=== PATIENT | male | born 1975 | race Caucasian/White ===

== ENCOUNTER 2023-01-20 01:45 | Inpatient (IN) | payer OTHER ==
[2023-01-20] MEDS ORDERED: methylPREDNISolone SOD SUCCI 125 MG/2 ML VIAL IV STA (02:40)
[2023-01-20] MEDS ORDERED: IPRATROPIUM-ALBUTEROL 3 ML NEB INHALATION STA (02:40)
[2023-01-20] MEDS ORDERED: SODIUM CHLORIDE 0.9% 1,000 ML IV STA (02:40)
[2023-01-20] MEDS ORDERED: ONDANSETRON 4 MG/2 ML VIAL IVP STA (02:40)
[2023-01-20 03:40] LABS: ALT 28 U/L (4-49); AST 22 U/L (17-59); African American GFR (CKD) >90 (>60 ml/min/1.73 sqM); Albumin 3.7 g/dL (3.5-5.0); Alkaline Phosphatase 65 U/L (38-126); Amylase 43 U/L (30-110); Anion Gap 13 mmol/L; Blood Urea Nitrogen 16 mg/dL (9-20); Carbon Dioxide 23 mmol/L (22-30); Chloride 106 mmol/L (98-107); Glucose 158 mg/dL (74-99); Lipase 110 U/L (23-300); Non-African American GFR(CKD) >90 (>60 ml/min/1.73 sqM); Potassium 3.8 mmol/L (3.5-5.1); Sodium 142 mmol/L (137-145); Total Bilirubin 0.5 mg/dL (0.2-1.3); Total Protein 6.7 g/dL (6.3-8.2)
--- NOTE | 2023-01-20 03:51 | ED ---
Nausea/Vomiting/Diarrhea HPI - General Chief complaint: Nausea/Vomiting/Diarrhea Stated complaint: N/V Time Seen by Provider: 01/20/23 02:31 Source: EMS Mode of arrival: EMS Limitations: no limitations - History of Present Illness Initial comments: 47-year-old male presenting with chief complaint of nausea and vomiting. Patient's states that she heard him get up at around 11:30 when he went to the bathroom and started vomiting. States that he continued vomiting for about an hour and a half. She then went to find him lying on the bathroom floor. He admits to generalized abdominal discomfort with no distinct pain. No fevers or chills. He does admit to shortness of breath, he is a pack and a half per day smoker with asthma. No chest pain. No headache, vision or hearing changes. - Related Data Home Medications Medication Instructions Recorded Confirmed Albuterol Inhaler [Ventolin Hfa 2 puff INHALATION RT-QID PRN 01/20/23 01/20/23 Inhaler] Gabapentin 800 mg PO TID 01/20/23 01/20/23 HYDROcodone/APAP 7.5-325MG [[place] 1 tab PO TID PRN 01/20/23 01/20/23 7.5-325] Loperamide [Imodium] 4 mg PO QID PRN 01/20/23 01/20/23 Losartan/Hydrochlorothiazide 1 tab PO DAILY 01/20/23 01/20/23 [Losartan-Hctz 100-25 mg Tab] Metoprolol Succinate (ER) [Toprol 100 mg PO DAILY 01/20/23 01/20/23 XL] Semaglutide [Ozempic] 1 mg SQ SA 01/20/23 01/20/23 Sertraline [Zoloft] 100 mg PO DAILY 01/20/23 01/20/23 Simethicone [Gas-X] 250 mg PO ACHS PRN 01/20/23 01/20/23 Tiotropium 2.5 Mcg/Puff [Spiriva 2 puff INHALATION RT-BID 01/20/23 01/20/23 Respimat 2.5 Mcg] metFORMIN HCL [Glucophage] 500 mg PO DAILY 01/20/23 01/20/23 Allergies Allergy/AdvReac Type Severity Reaction Status Date / Time No Known Allergies Allergy Verified 01/20/23 12:15 Review of Systems ROS Statement: Those systems with pertinent positive or pertinent negative responses have been documented in the HPI. ROS Other: All systems not noted in ROS Statement are negative. Past Medical History Past Medical History: Diabetes Mellitus History of Any Multi-Drug Resistant Organisms: None Reported Past Surgical History: No Surgical Hx Reported Past Psychological History: No Psychological Hx Reported Smoking Status: Current every day smoker Past Alcohol Use History: Rare Past Drug Use History: Marijuana - Past Family History Mother Family Medical History: Congestive Heart Failure (CHF) Additional Family Medical History / Comment(s): passed 2009 post hernia repair General Exam Limitations: no limitations General appearance: alert, in no apparent distress Head exam: Present: atraumatic, normocephalic, normal inspection Eye exam: Present: normal appearance, EOMI Neck exam: Present: normal inspection, full ROM Respiratory exam: Present: wheezes, rales. Absent: rhonchi, stridor Cardiovascular Exam: Present: regular rate, normal rhythm, normal heart sounds. Absent: systolic murmur, diastolic murmur, rubs, gallop, clicks GI/Abdominal exam: Present: soft, distended. Absent: tenderness, guarding, rebound, rigid Extremities exam: Present: pedal edema Neurological exam: Present: alert, altered Psychiatric exam: Present: normal affect, normal mood Skin exam: Present: warm, dry, intact, normal color. Absent: rash Course Vital Signs 01/20/23 01/20/23 01/20/23 02:00 03:55 04:10 Temperature 98 F Pulse Rate 82 72 75 Pulse Rate [ Pulse Oximetery ] Respiratory 18 Rate Blood Pressure 144/85 Blood Pressure [Right Arm] O2 Sat by Pulse 94 L Oximetry 01/20/23 01/20/23 01/20/23 07:31 09:07 09:14 Temperature 97.3 F L Pulse Rate 70 72 70 Pulse Rate [ Pulse Oximetery ] Respiratory 24 Rate Blood Pressure 115/73 Blood Pressure [Right Arm] O2 Sat by Pulse 93 L Oximetry 01/20/23 01/20/23 01/20/23 09:52 12:07 12:18 Temperature Pulse Rate 67 70 74 Pulse Rate [ Pulse Oximetery ] Respiratory 22 Rate Blood Pressure 113/70 Blood Pressure [Right Arm] O2 Sat by Pulse 93 L Oximetry 01/20/23 01/20/23 01/20/23 15:21 15:41 15:50 Temperature Pulse Rate 65 76 78 Pulse Rate [ Pulse Oximetery ] Respiratory 20 Rate Blood Pressure 120/65 Blood Pressure [Right Arm] O2 Sat by Pulse 91 L Oximetry 01/20/23 16:40 Temperature 97.5 F L Pulse Rate 74 Pulse Rate [ 70 Pulse Oximetery ] Respiratory 16 Rate Blood Pressure 122/78 Blood Pressure 147/85 [Right Arm] O2 Sat by Pulse 100 Oximetry Medical Decision Making - Medical Decision Making Was pt. sent in by a medical professional or institution (, PA, COMPONENT ENGINEER, urgent care, hospital, or half-way...) When possible be specific @ -No Did you speak to anyone other than the patient for history (EMS, parent, family, police, friend...)? What history was obtained from this source @ -Spoke with and son at bedside Did you review nursing and triage notes (agree or disagree)? Why? @ -I reviewed and agree with nursing and triage notes Were old charts reviewed (outside hosp., previous admission, EMS record, old EKG, old radiological studies, urgent care reports/EKG's, half-way records)? Report findings @ -No old charts were reviewed Differential Diagnosis (chest pain, altered mental status, abdominal pain women, abdominal pain men, vaginal bleeding, weakness, fever, dyspnea, syncope, headache, dizziness, GI bleed, back pain, seizure, CVA, palpatations, mental health, musculoskeletal)? @ -MDM Differential Dyspnea: Coronary syndrome, arrhythmia, tamponade, asthma, COPD, pulmonary embolism, pneumonia, pneumothorax, pulmonary effusion, anaphylaxis, diabetic ketoacidosis, flailed chest, pulmonary contusion, diaphragmatic rupture, anemia, neuromuscular… this is not meant to be an all-inclusive list. EKG interpreted by me (3pts min.). @ -As above X-rays interpreted by me (1pt min.). @ -Chest x-ray positive for effusion, correlate for CHF CT interpreted by me (1pt min.). @ -None done U/S interpreted by me (1pt. min.). @ -None done What testing was considered but not performed or refused? (CT, X-rays, U/S, labs)? Why? @ -None What meds were considered but not given or refused? Why? @ -None Did you discuss the management of the patient with other professionals (professionals i.e. , PA, COMPONENT ENGINEER, lab, RT, psych nurse, director of social media marketing, community health nursing director, teacher, sales and service officer, caseworker protective services)? Give summary @ -My attending spoke with the [facility], [place] physician on-call who accepted admission Was smoking cessation discussed for >3mins.? @ -No Was critical care preformed (if so, how long)? @ -No Were there social determinants of health that impacted care today? How? (Homelessness, low income, unemployed, alcoholism, drug addiction, transportation, low edu. Level, literacy, decrease access to med. care, snf, rehab)? @ -No Was there de-escalation of care discussed even if they declined (Discuss DNR or withdrawal of care, Hospice)? DNR status @ -No What co-morbidities impacted this encounter? (DM, HTN, Smoking, COPD, CAD, Cancer, CVA, ARF, Chemo, Hep., AIDS, mental health diagnosis, sleep apnea, morbid obesity)? @ -None Was patient admitted / discharged? Hospital course, mention meds given and route, prescriptions, significant lab abnormalities, going to OR and other pertinent info. @ -47-year-old male presenting with chief complaint of nausea and vomiting. On physical examination patient initially increased respiratory effort. Use wheezes and rales are heard on auscultation. Patient appears fluid overload with abdomen distention and lower extremity edema. WBC 16.3. Chest x-ray positive for effusion vs consolidation. Given his white count he'll be given one dose of Rocephin and azithromycin in the event of pneumonia. BNP and troponin are added on. Patient will be admitted. He is agreeable with this plan. I discussed this case with my attending Dr. Obiren Undiagnosed new problem with uncertain prognosis? @ -No Drug Therapy requiring intensive monitoring for toxicity (Heparin, Nitro, Insulin, Cardizem)? @ -No Were any procedures done? @ -No Diagnosis/symptom? @ -pneumonia Acute, or Chronic, or Acute on Chronic? @ -acute Uncomplicated (without systemic symptoms) or Complicated (systemic symptoms)? @ -Complicated Side effects of treatment? @ -No Exacerbation, Progression, or Severe Exacerbation? @ -No Poses a threat to life or bodily function? How? (Chest pain, USA, VT, pneumonia, PE, COPD, DKA, ARF, appy, cholecystitis, CVA, Diverticulitis, Homicidal, Suicidal, threat to staff... and all critical care pts) @ -yes - Lab Data Result diagrams: 01/20/23 03:20 01/20/23 03:20 Lab Results 01/20/23 01/20/23 01/20/23 Range/Units 03:20 03:20 03:50 WBC 16.3 H (3.8-10.6) k/uL RBC 5.00 (4.30-5.90) m/uL Hgb 16.5 (13.0-17.5) gm/dL Hct 49.9 (39.0-53.0) % MCV 99.8 (80.0-100.0) fL MCH 33.1 (25.0-35.0) pg MCHC 33.2 (31.0-37.0) g/dL RDW 12.7 (11.5-15.5) % Plt Count 298 (150-450) k/uL MPV 8.6 Neutrophils % 89 % Lymphocytes % 7 % Monocytes % 3 % Eosinophils % 0 % Basophils % 0 % Neutrophils # 14.5 H (1.3-7.7) k/uL Lymphocytes # 1.1 (1.0-4.8) k/uL Monocytes # 0.5 (0-1.0) k/uL Eosinophils # 0.0 (0-0.7) k/uL Basophils # 0.0 (0-0.2) k/uL Sodium 142 (137-145) mmol/L Potassium 3.8 (3.5-5.1) mmol/L Chloride 106 (98-107) mmol/L Carbon Dioxide 23 (22-30) mmol/L Anion Gap 13 mmol/L BUN 16 (9-20) mg/dL Creatinine 0.76 (0.66-1.25) mg/dL Est GFR (CKD-EPI)AfAm >90 (>60 ml/min/1.73 sqM) Est GFR (CKD-EPI)NonAf >90 (>60 ml/min/1.73 sqM) Glucose 158 H (74-99) mg/dL Calcium 9.0 (8.4-10.2) mg/dL Total Bilirubin 0.5 (0.2-1.3) mg/dL AST 22 (17-59) U/L ALT 28 (4-49) U/L Alkaline Phosphatase 65 (38-126) U/L Total Protein 6.7 (6.3-8.2) g/dL Albumin 3.7 (3.5-5.0) g/dL Amylase 43 (30-110) U/L Lipase 110 (23-300) U/L Influenza Type A (PCR) Not Detected (Not Detectd) Influenza Type B (PCR) Not Detected (Not Detectd) RSV (PCR) Not Detected (Not Detectd) SARS-CoV-2 (PCR) Not Detected (Not Detectd) Disposition Clinical Impression: Pneumonia Disposition: ADMITTED IP TO THIS HOSP Condition: Fair Time of Disposition: 05:24
[2023-01-20 04:02] LABS: Basophils % (A) 0 %; Eosinophils % (A) 0 %; HCT 49.9 % (39.0-53.0); HGB 16.5 gm/dL (13.0-17.5); Lymphocytes # (A) 1.1 k/uL (1.0-4.8); Lymphocytes % (A) 7 %; MCH 33.1 pg (25.0-35.0); MCHC 33.2 g/dL (31.0-37.0); MCV 99.8 fL (80.0-100.0); Mean Platelet Volume 8.6; Monocytes # (A) 0.5 k/uL (0-1.0); Monocytes % (A) 3 %; Neutrophils # (A) 14.5 k/uL (1.3-7.7); Neutrophils % (A) 89 %; Platelet Count 298 k/uL (150-450); RDW 12.7 % (11.5-15.5); WBC 16.3 k/uL (3.8-10.6)
[2023-01-20] MEDS ORDERED: FUROSEMIDE 10 MG/ML 4 ML VIAL IV STA (05:00)
[2023-01-20] MEDS ORDERED: cefTRIAXone IN SWFI 1,000 MG/10 ML SYRINGE IVP STA (05:00)
[2023-01-20] MEDS ORDERED: AZITHROMYCIN 500 MG in SODIUM CHLORIDE 0.9% 250 ML IVPB STA (05:00)
[2023-01-20] MEDS ORDERED: NALOXONE 0.4 MG/ML 1 ML VIAL IV PRN (05:22)
[2023-01-20] MEDS ORDERED: ONDANSETRON 4 MG/2 ML VIAL IVP PRN (05:22)
[2023-01-20] MEDS ORDERED: IPRATROPIUM-ALBUTEROL 3 ML NEB INHALATION PRN (06:06)
--- NOTE | 2023-01-20 06:08 | P.HPIM ---
History of Present Illness H&P Date: 01/20/23 Patient is a 47-year-old male with a PMH of asthma/COPD who presents to the emergency room with complaints of nausea/vomiting, and shortness of breath. Patient reports that his symptoms started earlier today with gradually worsening nausea with multiple episodes of nonbloody emesis. He reports shortness of breath over the last few days which is also been gradually worsening. Reports long-standing history of bilateral lower extremity edema without ever being diagnosed with congestive heart failure. Denies experiencing cough, fever, chills. Denied chest discomfort, abdominal pain, diarrhea. In the emergency room, chest x-ray was reviewed with the ED provider revealed cardiomegaly with minimal bilateral opacities. EKG revealed sinus rhythm with minimal ST segment depression noted in leads V3 to V6 with T-wave inversion in the same leads. Laboratory evaluation revealed troponin less than 0.012 with proBNP 147, leukocytosis of 16.3, with coronavirus and influenza testing negative. ED documentation reviewed and case discussed with ED provider. Review of systems: Pertinent positives and negatives as discussed in HPI, a complete review of systems was performed and all other systems are negative. Physical examination: Vital signs reviewed General: non toxic, no distress, appears at stated age, obese Derm: no unusual rashes/lesions, warm Head: atraumatic, normocephalic, symmetric Eyes: EOMI, no lid lag, anicteric sclera, pupils equal round reactive to light ENT: Nose and ears atraumatic Neck: No cervical lymphadenopathy, trachea midline, supple Mouth: no lip lesion, mucus membranes moist Cardiovascular: S1S2 reg, no murmur, positive dorsalis pedis pulse bilateral, 1+ duran LE edema Lungs: Scattered coarse breath sounds with poor air entry, no accessory muscle use Abdominal: soft, nontender to palpation, no guarding Ext: muscle strength 5 out of 5 in all 4 extremities grossly, no gross muscle atrophy, no contractures, Neuro: CN II-XI grossly intact, no gross focal neuro deficits Psych: Somewhat lethargic, oriented, appropriate affect Assessment: Shortness of breath, suspect acute COPD exacerbation, unable to rule out atypical pneumonia Imaging: In the emergency room, chest x-ray was reviewed with the ED provider revealed cardiomegaly with minimal bilateral opacities. EKG revealed sinus rhythm with minimal ST segment depression noted in leads V3 to V6 with T-wave inversion in the same leads. Data Review: Laboratory evaluation revealed troponin less than 0.012 with proBNP 147, leukocytosis of 16.3, with coronavirus and influenza testing negative. Plan: Continue with Solu-Medrol IV 60 mg every 6 hours DuoNeb's [id number] and as needed Continue ceftriaxone and azithromycin at this time Check pro calcitonin levels Obtain echocardiogram Obtain ABG DVT prophylaxis: Lovenox subq The patient is admitted with an anticipated [] than 2 midnight stay for evaluation of [] CODE STATUS: Full Code Discussed with: Patient Anticipated discharge place: Home Past Medical History Past Medical History: Diabetes Mellitus History of Any Multi-Drug Resistant Organisms: None Reported Past Surgical History: No Surgical Hx Reported Past Psychological History: No Psychological Hx Reported Smoking Status: Current every day smoker Past Alcohol Use History: Rare Past Drug Use History: Marijuana Medications and Allergies Allergies Allergy/AdvReac Type Severity Reaction Status Date / Time No Known Allergies Allergy Verified 01/20/23 02:03 Physical Exam Vitals: Vital Signs Temp Pulse Resp BP Pulse Ox 01/20/23 04:10 75 01/20/23 03:55 72 01/20/23 02:00 98 F 82 18 144/85 94 L Intake and Output 01/19/23 01/19/23 01/20/23 14:59 22:59 06:59 Other: Weight 158.757 kg Results CBC & Chem 7: 01/20/23 03:20 01/20/23 03:20 Labs: Abnormal Lab Results - Last 24 Hours (Table) 01/20/23 01/20/23 Range/Units 03:20 03:20 WBC 16.3 H (3.8-10.6) k/uL Neutrophils # 14.5 H (1.3-7.7) k/uL Glucose 158 H (74-99) mg/dL
[2023-01-20] MEDS: methylPREDNISolone SOD SUCCI 125 MG/2 ML VIAL IV SCH ×4 (06:50→23:31)
[2023-01-20 06:58] LABS: ABG Base Excess 2.2 mmol/L; ABG HCO3 28 mmol/L (21-25); ABG Oxygen Saturation 95.1 % (94-97); ABG PCO2 51 mmHg (35-45); ABG PH 7.35 (7.35-7.45); ABG PO2 75 mmHg (83-108); ABG TCO2 30 mmol/L (19-24); Allen Test Performed? Yes
[2023-01-20 07:58] LABS: Appearance,Urine Clear (Clear); Bilirubin,Urine Negative (Negative); Blood,Urine Negative (Negative); Color,Urine Yellow; Glucose,Urine (UA) Negative (Negative); Ketones,Urine Negative (Negative); Leukocyte Esterase,Urine Negative (Negative); Nitrite,Urine Negative (Negative); Protein,Urine Trace (Negative); Specific Gravity,Urine 1.017 (1.001-1.035); Urobilinogen,Urine <2.0 mg/dL (<2.0)
--- NOTE | 2023-01-20 08:37 | XR ---
EXAMINATION TYPE: XR chest 2V DATE OF EXAM: 01/20/2023 3:39 AM CLINICAL INDICATION:Male, 47 years old with history of SOB; [facility] COMPARISON: None TECHNIQUE: XR chest 2V Frontal and lateral views of the chest. FINDINGS: Lines/Tubes: No indwelling lines are seen. Lungs/Pleura: Hazy opacity left lung base on the frontal view attributed to overlying heart, with mil d atelectasis possible. There is otherwise no evidence of pleural effusion, focal consolidation, or p neumothorax. Pulmonary vascularity: Mild pulmonary vascular congestion. Heart/mediastinum: Cardiomediastinal silhouette is mildly prominent in size. Unremarkable mediastina l silhouette. Musculoskeletal: No acute osseous pathology. Mild degenerative changes of the dorsal spine. Other findings: None IMPRESSION: Mild cardiomegaly and mild pulmonary vascular congestion. Otherwise no acute cardiopulmonary disease/process.
--- NOTE | 2023-01-20 08:47 | P.CRDCN ---
History of Present Illness Consult date: 01/20/23 Chief complaint: SOB History of present illness: The patient is a pleasant 47-year-old gentleman with past medical history significant for overweight and diabetes and hypertension and smoking. He was brought to the hospital by his family. The patient was in his usual state of health about 2 days ago. Woke up from sleep went to the bathroom because he felt nauseated. He tried that he could not. He was weak to get up. He was brought to the emergency department for further evaluation. For the last few days he has been experiencing increasing shortness of breath with exertion associated with bilateral lower extremity edema. He gained weight. No symptoms of any chest pain or chest discomfort but he didn't have an episode of chest t ightness days ago. Currently he is chest pain-free. He felt the chest tightness could be related to asthma. The patient underwent workup including EKG and that showed ST changes in the anterolateral leads concerning for severe underlying coronary artery disease. Would be also related to hypertensive heart disease. The first set of troponin came in to be unremarkable. More sets of troponin. The echo was ordered and still pending. Clinically the patient is sitting at 45 angle the and he stated that his the left more short of breath laying flat. He is slightly hypoxic presented to the emergency department currently he is on oxygen and is feeling better. The chest x-ray showed findings consistent with what it seems to be heart failure. He came into the low. The patient is overweight and that could be falsely low. The patient does have multiple risk factors for overweight diabetes and hypertension and he is also a smoker. The examination is remarkable for stable vital signs at this point with diminished breathing sounds bilaterally and irregularly with distant heart sounds and mild bilateral lower extremity Soft nontender abdomen Assessment Shortness of breath Abnormal EKG Overweight Smoking Diabetes Hypertension Plan Start the patient on IV Lasix at this point Follow-up with the echocardiogram which was ordered Serial cardiac enzymes and rule out acute coronary event given the abnormality on the EKG Rule out pulmonary embolism. Obtain d-dimer. Even though the diagnosis is likely Follow-up with the patient Past Medical History Past Medical History: Diabetes Mellitus History of Any Multi-Drug Resistant Organisms: None Reported Past Surgical History: No Surgical Hx Reported Past Psychological History: No Psychological Hx Reported Smoking Status: Current every day smoker Past Alcohol Use History: Rare Past Drug Use History: Marijuana Medications and Allergies Allergies Allergy/AdvReac Type Severity Reaction Status Date / Time No Known Allergies Allergy Verified 01/20/23 02:03 Physical Exam Vitals: Vital Signs Temp Pulse Resp BP Pulse Ox 01/20/23 07:31 97.3 F L 70 24 115/73 93 L 01/20/23 04:10 75 01/20/23 03:55 72 01/20/23 02:00 98 F 82 18 144/85 94 L Intake and Output 01/19/23 01/20/23 01/20/23 22:59 06:59 14:59 Other: Weight 158.757 kg Results 01/20/23 03:20 01/20/23 03:20 Cardiac Enzymes 01/20/23 01/20/23 Range/Units 03:20 05:17 AST 22 (17-59) U/L Troponin I <0.012 (0.000-0.034) ng/mL CBC 01/20/23 Range/Units 03:20 WBC 16.3 H (3.8-10.6) k/uL RBC 5.00 (4.30-5.90) m/uL Hgb 16.5 (13.0-17.5) gm/dL Hct 49.9 (39.0-53.0) % Plt Count 298 (150-450) k/uL Comprehensive Metabolic Panel 01/20/23 Range/Units 03:20 Sodium 142 (137-145) mmol/L Potassium 3.8 (3.5-5.1) mmol/L Chloride 106 (98-107) mmol/L Carbon Dioxide 23 (22-30) mmol/L BUN 16 (9-20) mg/dL Creatinine 0.76 (0.66-1.25) mg/dL Glucose 158 H (74-99) mg/dL Calcium 9.0 (8.4-10.2) mg/dL AST 22 (17-59) U/L ALT 28 (4-49) U/L Alkaline Phosphatase 65 (38-126) U/L Total Protein 6.7 (6.3-8.2) g/dL Albumin 3.7 (3.5-5.0) g/dL Current Medications Generic Name Dose Route Start Last Admin Trade Name Freq PRN Reason Stop Dose Admin Albuterol/Ipratropium 3 ml 01/20/23 06:06 Ipratropium-Albuterol 3 Ml Neb INHALATION RT-QID PRN Shortness Of Breath Or Wheezing Albuterol/Ipratropium 3 ml 01/20/23 08:00 Ipratropium-Albuterol 3 Ml Neb INHALATION RT-QID [facility] Azithromycin 500 mg 01/21/23 09:00 Azithromycin 500 Mg Tab PO 01/22/23 09:01 DAILY [facility] Protocol Enoxaparin Sodium 40 mg 01/20/23 09:00 Enoxaparin 40 Mg/0.4 Ml Syringe SQ DAILY [facility] Ceftriaxone Sodium 2 gm/ 50 mls @ 100 mls/hr 01/20/23 21:00 Sodium Chloride IVPB HS [facility] Protocol Methylprednisolone Sodium Succinate 60 mg 01/20/23 06:15 01/20/23 06:50 Methylprednisolone Sod Succi 125 Mg/2 Ml Vial IV 60 mg Q6HR [facility] Administration Naloxone HCl 0.2 mg 01/20/23 05:22 Naloxone 0.4 Mg/Ml 1 Ml Vial IV Q2M PRN Opioid Reversal Ondansetron HCl 4 mg 01/20/23 05:22 Ondansetron 4 Mg/2 Ml Vial IVP Q8HR PRN Nausea And Vomiting Intake and Output 01/19/23 01/20/23 01/20/23 22:59 06:59 14:59 Other: Weight 158.757 kg 01/20/23 03:20 01/20/23 03:20
[2023-01-20] MEDS ORDERED: ENOXAPARIN 40 MG/0.4 ML SYRINGE SQ SCH (09:00)
[2023-01-20] MEDS: IPRATROPIUM-ALBUTEROL 3 ML NEB INHALATION SCH ×4 (09:06→18:12)
[2023-01-20] MEDS: FUROSEMIDE 10 MG/ML 4 ML VIAL IV SCH ×2 (09:52→21:10)
[2023-01-20] MEDS ORDERED: ALBUTEROL NEBULIZED 2.5 MG/3 ML INHALATION PRN (14:17)
--- NOTE | 2023-01-20 14:34 | P.PN ---
Subjective Progress Note Date: 01/20/23 (delayed charting seen at 0925) Patient is a 47-year-old male for history of COPD, diabetes mellitus type 2, hypertension, and ongoing tobacco abuse who presented to the hospital due to we akness, exertional dyspnea, enlarged the edema. Patient seen and examined at bedside. He still just doesn't feel quite right. He denies any nausea. He is not having much chest pain at this time. Patient was visited bedside. All questions answered. He does have some lower extremity edema which has been improved since admission. Vital signs reviewed General: nontoxic, no distress, appears at stated age Cardiovascular: S1S2 reg, no murmur, positive posterior tibial pulse bilateral, Lungs: CTA bilateral, no rhonchi, no rales , no accessory muscle use Abdominal: soft, nontender to palpation, no guarding, no appreciable organomegaly Ext: no gross muscle atrophy, no edema b/l lower extremities, no contractures Neuro: CN II-XI grossly intact, no focal neuro deficits Psych: Alert, oriented, appropriate affect Assessment/Plan: Dyspnea, probable acute exacerbation of COPD versus new onset congestive heart failure, pneumonia ruled out -Lasix 40 mg IV twice a day -Strict I's and O's, daily weights, await echocardiogram-resume metoprolol 100 m g daily, losartan 100 mg daily, hold hydrochlorothiazide while on Lasix -Cardiology recommendations appreciated: Obtain D dimer, serial cardiac enzymes, follow-up echocardiogram -Resume Spiriva, DuoNeb 4 times daily and when necessary, Solu-Medrol 60 mg IV every 6 hours -Await pro-calcitonin -Discontinue with Rocephin and Zithromax, doubt pna clinically has received dose for today, can reorder tomorrow if procal is elevated. - repeat CXR in AM -Influenza A/B/RSV/COVID-19 PCR negative Diabetes mellitus type 2 -Hold Glucophage and some occlusion by -Sliding-scale insulin -Follow blood sugars Obseity Class III - resume ozempic on discharge - outpatient structured weight loss Imaging: none new Data Review: D-dimer 0.60 DVT prophylaxis: Lovenox Anticipated discharge date: Pending Clinical Course Anticipated discharge place: Pending Clinical Course This dictation was prepared using [employer] voice recognition software. Though every attempt is made to correct errors during dictation some may still exist. Objective - Vital Signs Vital signs: Vital Signs Temp 97.3 F L 01/20/23 07:31 Pulse 74 01/20/23 12:18 Resp 22 01/20/23 09:52 BP 113/70 01/20/23 09:52 Pulse Ox 93 L 01/20/23 09:52 FiO2 Intake & Output 01/19/23 01/20/23 01/20/23 18:59 06:59 18:59 Output Total 700 Balance -700 Weight 158.757 kg Output: Urine 700 - Labs CBC & Chem 7: 01/20/23 03:20 01/20/23 03:20 Labs: Abnormal Lab Results - Last 24 Hours (Table) 01/20/23 01/20/23 01/20/23 Range/Units 03:20 03:20 06:10 WBC 16.3 H (3.8-10.6) k/uL Neutrophils # 14.5 H (1.3-7.7) k/uL D-Dimer (<0.60) mg/L FEU ABG pCO2 (35-45) mmHg ABG pO2 (83-108) mmHg ABG HCO3 (21-25) mmol/L ABG Total CO2 (19-24) mmol/L Glucose 158 H (74-99) mg/dL Urine Protein Trace H (Negative) 01/20/23 01/20/23 Range/Units 06:52 09:58 WBC (3.8-10.6) k/uL Neutrophils # (1.3-7.7) k/uL D-Dimer 0.60 H (<0.60) mg/L FEU ABG pCO2 51 H (35-45) mmHg ABG pO2 75 L (83-108) mmHg ABG HCO3 28 H (21-25) mmol/L ABG Total CO2 30 H (19-24) mmol/L Glucose (74-99) mg/dL Urine Protein (Negative)
[2023-01-20] MEDS: GABAPENTIN 400 MG CAP PO SCH ×2 (15:17→21:09)
[2023-01-20] MEDS: SERTRALINE 100 MG TAB PO SCH (15:17)
--- NOTE | 2023-01-20 15:56 | CT ---
EXAMINATION TYPE: CT chest angio for PE DATE OF EXAM: 01/20/2023 COMPARISON: None HISTORY: Elevated d-dimer, chest pain CT DLP: 1069.4 mGycm Automated exposure control for dose reduction was used. CONTRAST: CT Chest for pulmonary embolism performed with with IV Contrast, patient injected with 100 mL of Isov ue 370. 3-D postprocessing was performed FINDINGS: There are small infiltrates in the lung bases posteriorly which could represent atelectasis but small pneumonic infiltrate not excluded. There is no pleural effusion, pleural thickening or pneumothorax. The great vessels chest are normal and there is no mediastinal, hilar or axillary adenopathy. There is satisfactory enhancement of the pulmonary artery and branches and there is no evidence of fi lling is intact to suggest pulmonary embolism. Limited scanning through the upper abdomen reveals no gross abnormality. The osseous structures are intact. IMPRESSION: 1. No evidence of pulmonary embolism. 2. Small bibasilar infiltrates is described above.
[2023-01-20] MEDS ORDERED: NON FORMULARY DRUG (Tiotropium 2.5 Mcg/Puff 10 PUFF Each) INHALATION SCH (20:00)
[2023-01-20] MEDS: HYDROcodone/APAP 7.5-325MG 1 EACH TAB PO PRN (21:20)
[2023-01-21] MEDS: methylPREDNISolone SOD SUCCI 125 MG/2 ML VIAL IV SCH ×3 (05:31→17:42)
--- NOTE | 2023-01-21 07:41 | XR ---
EXAMINATION TYPE: XR chest 2V DATE OF EXAM: 01/21/2023 7:11 AM CLINICAL INDICATION:Male, 47 years old with history of pneumonia; COMPARISON: Chest radiographs from 01/20/2023 TECHNIQUE: XR chest 2V Frontal and lateral views of the chest. FINDINGS: Lungs/Pleura: Low lung volumes are present. There is no evidence of pleural effusion, focal consolida tion, or pneumothorax. Pulmonary vascularity: Pulmonary vascular congestion. Heart/mediastinum: Cardiomediastinal silhouette is enlarged and stable. Musculoskeletal: No acute osseous pathology. IMPRESSION: 1. Pulmonary edema without focal consolidation.
[2023-01-21 07:52] LABS: MCH 32.6 pg (25.0-35.0); MCHC 32.6 g/dL (31.0-37.0); Mean Platelet Volume 8.5; Platelet Count 284 k/uL (150-450); RDW 12.7 % (11.5-15.5); WBC 17.8 k/uL (3.8-10.6)
[2023-01-21 08:01] LABS: African American GFR (CKD) >90 (>60 ml/min/1.73 sqM); Anion Gap 11 mmol/L; Blood Urea Nitrogen 22 mg/dL (9-20); Calcium 8.7 mg/dL (8.4-10.2); Carbon Dioxide 28 mmol/L (22-30); Chloride 102 mmol/L (98-107); Glucose 134 mg/dL (74-99); Non-African American GFR(CKD) >90 (>60 ml/min/1.73 sqM); Potassium 3.9 mmol/L (3.5-5.1); Sodium 141 mmol/L (137-145)
[2023-01-21] MEDS ORDERED: HEPARIN SODIUM 1,000 UN/ML (10ML VL) IV ONE (08:42)
[2023-01-21] MEDS ORDERED: HEPARIN SODIUM 1,000 UN/ML (10ML VL) IV PRN (08:42)
[2023-01-21] MEDS ORDERED: ATORVASTATIN 80 MG TAB PO STA (08:43)
[2023-01-21] MEDS ORDERED: ASPIRIN 325 MG TAB PO STA (08:43)
[2023-01-21] MEDS ORDERED: ALPRAZolam 0.25 MG TAB PO PRN (08:43)
[2023-01-21] MEDS ORDERED: NITROGLYCERIN SL TABS 0.4 MG TAB SUBLINGUAL PRN (08:43)
[2023-01-21] MEDS ORDERED: ALPRAZolam 0.5 MG TAB PO PRN (08:43)
[2023-01-21] MEDS: SERTRALINE 100 MG TAB PO SCH (08:47)
[2023-01-21] MEDS: METOPROLOL SUCCINATE (ER) 100 MG TAB.ER.24H PO SCH (08:47)
[2023-01-21] MEDS: FUROSEMIDE 10 MG/ML 4 ML VIAL IV SCH ×3 (08:47→22:27)
[2023-01-21] MEDS: GABAPENTIN 400 MG CAP PO SCH ×3 (08:47→22:27)
[2023-01-21] MEDS: IPRATROPIUM-ALBUTEROL 3 ML NEB INHALATION SCH ×4 (08:49→22:01)
[2023-01-21] MEDS: HYDROcodone/APAP 7.5-325MG 1 EACH TAB PO PRN ×2 (08:55→16:46)
[2023-01-21] MEDS ORDERED: AZITHROMYCIN 500 MG TAB PO SCH (09:00)
[2023-01-21] MEDS: SODIUM CHLORIDE 0.9% 1,000 ML in EMPTY BAG 1 BAG IV SCH ×2 (10:26→17:43)
[2023-01-21 11:00] LABS: Basophils % (A) 0 %; Eosinophils % (A) 0 %; HCT 48.8 % (39.0-53.0); HGB 15.6 gm/dL (13.0-17.5); Lymphocytes # (A) 0.8 k/uL (1.0-4.8); Lymphocytes % (A) 5 %; MCH 32.3 pg (25.0-35.0); MCHC 32.1 g/dL (31.0-37.0); MCV 100.9 fL (80.0-100.0); Mean Platelet Volume 8.4; Monocytes # (A) 0.4 k/uL (0-1.0); Monocytes % (A) 2 %; Neutrophils # (A) 16.7 k/uL (1.3-7.7); Neutrophils % (A) 93 %; Platelet Count 329 k/uL (150-450); RBC 4.84 m/uL (4.30-5.90); RDW 12.7 % (11.5-15.5); WBC 18.1 k/uL (3.8-10.6)
[2023-01-21] MEDS: HEPARIN SOD,PORK IN 0.45% NACL 25,000 UNIT in 0.45% NACL 1 250ML.BAG IV SCH (11:01)
[2023-01-21 11:08] LABS: Partial Thromboplastin Time 22.7 sec (22.0-30.0); Prothrombin Time 10.3 sec (9.0-12.0)
--- NOTE | 2023-01-21 11:51 | P.PN ---
Subjective HISTORY OF PRESENT ILLNESS: The patient is a pleasant 47-year-old gentleman with past medical history significant for overweight and diabetes and hypertension and smoking. He was brought to the hospital by his family. The patient was in his usual state of health about 2 days ago. Woke up from sleep went to the bathroom because he felt nauseated. He tried that he could not. He was weak to get up. He was brought to the emergency department for further evaluation. For the last few days he has been experiencing increasing shortness of breath with exertion associated with bilateral lower extremity edema. He gained weight. No symptoms of any chest pain or chest discomfort but he didn't have an episode of chest tightness days ago. Currently he is chest pain-free. He felt the chest tightness could be related to asthma. The patient underwent workup including EKG and that showed ST changes in the anterolateral leads concerning for severe underlying coronary artery disease. Would be also related to hypertensive heart disease. The first set of troponin came in to be unremarkable. More sets of troponin. The echo was ordered and still pending. Clinically the patient is sitting at 45 angle the and he stated that his the left more short of breath laying flat. He is slightly hypoxic presented to the emergency department currently he is on oxygen and is feeling better. The chest x-ray showed finding s consistent with what it seems to be heart failure. He came into the low. The patient is overweight and that could be falsely low. The patient does have multiple risk factors for overweight diabetes and hypertension and he is also a smoker. 01/21/2023 Patient examined this morning at the bedside. Patient currently denies chest pain or pressure. He reports improvement in his shortness of breath. He remains on IV Lasix. Vital signs this morning are stable. Patient was found to have elevated troponin up to 0.147. PHYSICAL EXAM: VITAL SIGNS: Reviewed. GENERAL: Well-developed in no acute distress. NECK: Supple. No JVD or thyromegaly LUNGS: Respirations even and unlabored. Lungs essentially clear to auscultation bilaterally. HEART: Regular rate and rhythm. S1 and S2 heard. EXTREMITIES: Normal range of motion. No clubbing or cyanosis. Peripheral pulses intact. No lower extremity edema ASSESSMENT: Non-STEMI New onset shortness of breath Abnormal EKG Diabetes Hypertension Morbid obesity Nicotine dependence PLAN: 2-D echo ordered. Await results Continue IV Lasix Add aspirin 81 mg daily Add atorvastatin 80 mg at night Begin IV heparin infusion Patient to be transferred to [facility] with telemetry monitoring Patient to undergo cardiac catheterization today with Dr. Sherwood Further recommendations pending patient course Nurse practitioner note has been reviewed by physician. Signing provider agrees with the documented findings, assessment, and plan of care. Objective - Vital Signs Vital signs: Vital Signs Temp 97.5 F L 01/21/23 07:18 Pulse 74 01/21/23 09:03 Resp 18 01/21/23 07:18 BP 136/86 01/21/23 07:18 Pulse Ox 99 01/21/23 08:49 FiO2 Intake & Output 01/20/23 01/21/23 01/21/23 18:59 06:59 18:59 Intake Total 600 Output Total 700 Balance -100 Weight 158.757 kg Intake: Oral 600 Output: Urine 700 Other: Voiding Method Toilet Toilet # Voids 1 - Labs CBC & Chem 7: 01/21/23 10:39 01/21/23 06:56 Labs: Abnormal Lab Results - Last 24 Hours (Table) 01/20/23 01/21/23 01/21/23 Range/Units 18:53 06:56 06:56 WBC 17.8 H (3.8-10.6) k/uL MCV (80.0-100.0) fL Neutrophils # (1.3-7.7) k/uL Lymphocytes # (1.0-4.8) k/uL BUN 22 H (9-20) mg/dL Glucose 134 H (74-99) mg/dL Troponin I 0.089 H* (0.000-0.034) ng/mL 01/21/23 01/21/23 Range/Units 07:35 10:39 WBC 18.1 H (3.8-10.6) k/uL MCV 100.9 H (80.0-100.0) fL Neutrophils # 16.7 H (1.3-7.7) k/uL Lymphocytes # 0.8 L (1.0-4.8) k/uL BUN (9-20) mg/dL Glucose (74-99) mg/dL Troponin I 0.147 H* (0.000-0.034) ng/mL
[2023-01-21 12:40] LABS: Glucose,Whole Blood 193 mg/dL (70-110)
[2023-01-21] MEDS ORDERED: MIDAZOLAM 2 MG/2 ML VIAL IVP ONE (13:49)
[2023-01-21] MEDS ORDERED: LIDOCAINE 1% INJ 10MG/ML (30 ML VIAL-PF) SQ ONE (13:50)
[2023-01-21] MEDS ORDERED: VERAPAMIL SYRINGE (5 MG/10 ML) INTRAARTER ONE (13:55)
[2023-01-21] MEDS ORDERED: IV FLUID CONTINUATION 1,000 ML IV ONE (13:56)
[2023-01-21] MEDS ORDERED: IOPAMIDOL-370 100ML BTL INJ ONE (14:00)
[2023-01-21] MEDS ORDERED: RX INFO: IV CONTRAST WAS GIVEN 1 EACH MISC MISCELLANE PRN (14:03)
--- NOTE | 2023-01-21 14:05 | P.PCN ---
Date of Procedure: 01/21/23 Operative Findings: CARDIAC CATHETERIZATION PERFORMING PHYSICIAN: Edwin Sherwood MD, RPVI PROCEDURE PERFORMED: 1. Selective right and left coronary angiogram INDICATION: Acute coronary syndrome COMPLICATION: None APPROACH: Right radial artery LEVEL OF SEDATION: Moderate with a sedation length of [] minutes PROCEDURE DESCRIPTION: After obtaining an informed consent, the patient was brought to cardiac carpenter labor supervisor. Local anesthesia was performed using lidocaine subcutaneously. The right radial artery was cannulated using Seldinger technique, the guidewire passed easily, following that we advanced a 5-Gabonese sheath dilator assembly, the wire and dilator were removed and sheath was flushed. Following that, 2 mg of verapamil Selective right and left coronary angiogram using a 6-Gabonese JR4 and JL 3.5 catheters. The procedure was completed there was no complication. SELECTIVE CORONARY ANGIOGRAM: The right coronary artery: Large-caliber vessel and is dominant vessel appears to have mild disease only Left main: Is angiographically normal. Bifurcates into an LAD The left circumflex: Large caliber vessel and codominant vessel. The LCx has mild disease only. Gives rises into an OM1 which appeared to be angiographically normal. Distally bifurcates into PDA and PLV branches both appeared to be angiographically normal The left anterior descending artery: Large-caliber vessel. It has only [id number] disease in the midportion. The LAD otherwise has no high-grade stenosis identified CONCLUSION: 1. Mild to moderate nonobstructive coronary artery disease POSTPROCEDURE MANAGEMENT: Medical treatment
[2023-01-21] MEDS ORDERED: SODIUM CHLORIDE 0.9% 1,000 ML IV SCH (14:15)
[2023-01-21 14:19] LABS: Glucose,Whole Blood 171 mg/dL (70-110)
[2023-01-21 16:48] LABS: Glucose,Whole Blood 298 mg/dL (70-110)
--- NOTE | 2023-01-21 16:48 | P.PN ---
Subjective Progress Note Date: 01/21/23 (delayed charting seen at 0955) Patient is a 47-year-old male for history of COPD, diabetes mellitus type 2, hypertension, and ongoing tobacco abuse who presented to the hospital due to we akness, exceptional dyspnea, and lower extremity edema. He was admitted and was started on IV Lasix, bronchodilators, and steroids. Antibiotics were discontinued as pro-calcitonin came back negative. He was seen by cardiology and subsequently underwent cardiac catheterization on 01/21/23 for mildly elevated troponin. This showed nonobstructive mild coronary artery disease. Patient seen and examined at bedside with family present. He continues to feel short of breath and had some chest discomfort with exertion. He denies any nausea. He is anxious about having a heart cath done today. All questions answered. Vital signs reviewed General: nontoxic, no distress, appears at stated age Cardiovascular: S1S2 reg, no murmur, positive posterior tibial pulse bilateral, Lungs: CTA bilateral, no rhonchi, no rales , no accessory muscle use Abdominal: soft, nontender to palpation, no guarding, no appreciable organomegaly Ext: no gross muscle atrophy, no edema b/l lower extremities, no contractures Neuro: CN II-XI grossly intact, no focal neuro deficits Psych: Alert, oriented, appropriate affect Assessment/Plan: Dyspnea, probable acute exacerbation of COPD versus new onset congestive heart failure, pneumonia ruled out Non-ST segment elevation myocardial infarction Abnormal EKG Ongoing tobacco abuse -Cardiac catheterization today, transfer to [address] [place] [address], start heparin drip, add aspirin 81 mg daily and atorvastatin 80 mg at night, continue Lasix, await 2-D echo -Lasix 40 mg IV twice a day -Strict I's and O's, daily weights, await echocardiogram - metoprolol 100 mg daily, losartan 100 mg daily, hold hydrochlorothiazide while on Lasix -Spiriva, DuoNeb 4 times daily and when necessary, Solu-Medrol 60 mg IV every 6 hours - off abx with negative procal -Influenza A/B/RSV/COVID-19 PCR negative - repeat CXR in AM - if echo without significant abnormality would consult pulmonary Diabetes mellitus type 2 -Hold Glucophage and ozempic -Sliding-scale insulin -Follow blood sugars Obseity Class III - resume ozempic on discharge - outpatient structured weight loss Imaging: CTA chest-no evidence of pulmonary embolism, small bibasilar infiltrates. Data Review: Afebrile the last 24 hours. Labs reviewed from this morning include CBC, basic metabolic profile, and troponin which were remarkable for white blood cell count 17.8, BUN 22, and troponin 0.147. Procalcitonin 0.07 DVT prophylaxis: Lovenox Anticipated discharge date: Pending Clinical Course Anticipated discharge place: Pending Clinical Course This dictation was prepared using [employer]ive voice recognition software. Though every attempt is made to correct errors during dictation some may still exist. Objective - Vital Signs Vital signs: Vital Signs Temp 98.4 F 01/21/23 11:45 Pulse 80 01/21/23 15:26 Resp 18 01/21/23 15:26 BP 133/68 01/21/23 16:12 Pulse Ox 92 L 01/21/23 14:33 FiO2 Intake & Output 01/20/23 01/21/23 01/21/23 18:59 06:59 18:59 Intake Total 600 100 Output Total 700 Balance -100 100 Weight 158.757 kg Intake: IV 100 Oral 600 Output: Urine 700 Other: Voiding Method Toilet Toilet # Voids 1 - Labs CBC & Chem 7: 01/21/23 10:39 01/21/23 06:56 Labs: Abnormal Lab Results - Last 24 Hours (Table) 01/20/23 01/21/23 01/21/23 Range/Units 18:53 06:56 06:56 WBC 17.8 H (3.8-10.6) k/uL MCV (80.0-100.0) fL Neutrophils # (1.3-7.7) k/uL Lymphocytes # (1.0-4.8) k/uL BUN 22 H (9-20) mg/dL Glucose 134 H (74-99) mg/dL POC Glucose (mg/dL) (70-110) mg/dL Troponin I 0.089 H* (0.000-0.034) ng/mL 01/21/23 01/21/23 01/21/23 Range/Units 07:35 10:39 12:38 WBC 18.1 H (3.8-10.6) k/uL MCV 100.9 H (80.0-100.0) fL Neutrophils # 16.7 H (1.3-7.7) k/uL Lymphocytes # 0.8 L (1.0-4.8) k/uL BUN (9-20) mg/dL Glucose (74-99) mg/dL POC Glucose (mg/dL) 193 H (70-110) mg/dL Troponin I 0.147 H* (0.000-0.034) ng/mL 01/21/23 Range/Units 14:17 WBC (3.8-10.6) k/uL MCV (80.0-100.0) fL Neutrophils # (1.3-7.7) k/uL Lymphocytes # (1.0-4.8) k/uL BUN (9-20) mg/dL Glucose (74-99) mg/dL POC Glucose (mg/dL) 171 H (70-110) mg/dL Troponin I (0.000-0.034) ng/mL
[2023-01-21] MEDS ORDERED: DEXTROSE 50% SYRINGE 50 ML IVP PRN ×2 (17:32)
[2023-01-21 20:40] LABS: Glucose,Whole Blood 274 mg/dL (70-110)
[2023-01-21] MEDS: INSULIN ASPART (NovoLOG) 100 UNIT/ML VIAL SQ SCH (22:27)
[2023-01-22] MEDS: methylPREDNISolone SOD SUCCI 125 MG/2 ML VIAL IV SCH ×5 (00:15→23:19)
[2023-01-22 06:32] LABS: Glucose,Whole Blood 174 mg/dL (70-110)
[2023-01-22] MEDS ORDERED: HEPARIN SODIUM,PORCINE (1 ML) 2,500 UNIT in SODIUM CHLORIDE 0.9% 250 ML IRRIGATION PRN (07:00)
[2023-01-22] MEDS ORDERED: HEPARIN SODIUM,PORCINE 10,000 UNIT in SODIUM CHLORIDE 0.9% 1,000 ML IRRIGATION PRN (07:00)
[2023-01-22] MEDS: INSULIN ASPART (NovoLOG) 100 UNIT/ML VIAL SQ SCH ×4 (07:07→20:49)
[2023-01-22] MEDS: GABAPENTIN 400 MG CAP PO SCH ×3 (08:24→19:51)
[2023-01-22] MEDS: ASPIRIN 81 MG PO SCH (08:26)
[2023-01-22] MEDS: METOPROLOL SUCCINATE (ER) 100 MG TAB.ER.24H PO SCH (08:26)
[2023-01-22] MEDS: SERTRALINE 100 MG TAB PO SCH (08:26)
[2023-01-22] MEDS: IPRATROPIUM-ALBUTEROL 3 ML NEB INHALATION SCH ×4 (08:41→21:20)
[2023-01-22 08:53] LABS: Basophils % (A) 0 %; Eosinophils # (A) 0.1 k/uL (0-0.7); Eosinophils % (A) 0 %; HCT 49.7 % (39.0-53.0); HGB 15.9 gm/dL (13.0-17.5); Lymphocytes # (A) 0.8 k/uL (1.0-4.8); Lymphocytes % (A) 5 %; MCH 32.5 pg (25.0-35.0); MCV 101.3 fL (80.0-100.0); Mean Platelet Volume 8.5; Monocytes # (A) 0.3 k/uL (0-1.0); Monocytes % (A) 2 %; Neutrophils # (A) 14.8 k/uL (1.3-7.7); Neutrophils % (A) 92 %; Platelet Count 300 k/uL (150-450); RDW 12.7 % (11.5-15.5); WBC 16.1 k/uL (3.8-10.6)
[2023-01-22 10:17] LABS: Prothrombin Time 10.6 sec (9.0-12.0)
[2023-01-22 11:30] LABS: Glucose,Whole Blood 226 mg/dL (70-110)
[2023-01-22] MEDS: FUROSEMIDE 10 MG/ML 4 ML VIAL IV SCH (12:14)
[2023-01-22] MEDS: HEPARIN SOD,PORK IN 0.45% NACL 25,000 UNIT in 0.45% NACL 1 250ML.BAG IV SCH (12:51)
[2023-01-22] MEDS: SODIUM CHLORIDE 0.9% 1,000 ML in EMPTY BAG 1 BAG IV SCH ×2 (12:53→17:22)
--- NOTE | 2023-01-22 13:37 | P.PN ---
Subjective Progress Note Date: 01/22/23 HISTORY OF PRESENT ILLNESS: The patient is a pleasant 47-year-old gentleman with past medical history sig nificant for overweight and diabetes and hypertension and smoking. He was brought to the hospital by his family. The patient was in his usual state of health about 2 days ago. Woke up from sleep went to the bathroom because he felt nauseated. He tried that he could not. He was weak to get up. He was brought to the emergency department for further evaluation. For the last few days he has been experiencing increasing shortness of breath with exertion associated with bilateral lower extremity edema. He gained weight. No symptoms of any chest pain or chest discomfort but he didn't have an episode of chest tightness days ago. Currently he is chest pain-free. He felt the chest tightness could be related to asthma. The patient underwent workup including EKG and that showed ST changes in the anterolateral leads concerning for severe underlying coronary artery disease. Would be also related to hypertensive heart disease. The first set of troponin came in to be unremarkable. More sets of troponin. The echo was ordered and still pending. Clinically the patient is sitting at 45 angle the and he stated that his the left more short of breath laying flat. He is slightly hypoxic presented to the emergency department currently he is on oxygen and is feeling better. The chest x-ray showed findings consistent with what it seems to be heart failure. He came into the low. The patient is overweight and that could be falsely low. The patient does have multiple risk factors for overweight diabetes and hypertension and he is also a smoker. 01/21/2023 Patient examined this morning at the bedside. Patient currently denies chest pain or pressure. He reports improvement in his shortness of breath. He remains on IV Lasix. Vital signs this morning are stable. Patient was found to have elevated troponin up to 0.147. 01/22 Patient is status post cardiac cath with Dr. Sherwood yesterday which revealed [id number] nonobstructive coronary artery disease with plan for medical treatment. Right wrist access site without bleeding, hematoma. Echocardiogram has been taken and report is pending. Patient denies having any chest pain. He states he feels a little winded moving in his room but that is normal for him. He states he had some heartburn last night usually has it at the nighttime and takes Tums for this. He denies having any fever or chills. No cough. WBC 16. 1, hemoglobin 15.9, platelet count 300. Blood pressure 174/95, heart rate 76- 80, afebrile, pulse ox 91% on room air. Discussed with patient the importance of maintaining statin. PHYSICAL EXAM: VITAL SIGNS: Reviewed. GENERAL: Well-developed in no acute distress. NECK: Supple. No JVD or thyromegaly LUNGS: Respirations even and unlabored. Lungs essentially clear to auscultation bilaterally. HEART: Regular rate and rhythm. S1 and S2 heard. EXTREMITIES: Normal range of motion. No clubbing or cyanosis. Peripheral pulses intact. No lower extremity edema ASSESSMENT: Non-STEMI New onset shortness of breath Abnormal EKG Diabetes Hypertension Morbid obesity Nicotine dependence PLAN: 2-D echo obtained and report is pending Transition IV Lasix to oral. Continue at time of discharge Continue aspirin 81 mg daily, atorvastatin 80 mg at night If echocardiogram is unremarkable, patient is cleared for discharge home and a follow-up in the office in one to 2 weeks. Nurse practitioner note has been reviewed, I agree with the documented findings and plan of care. Patient was seen and examined. Objective - Vital Signs Vital signs: Vital Signs Temp 97.7 F 01/22/23 08:00 Pulse 80 01/22/23 08:49 Resp 17 01/22/23 08:00 BP 174/91 01/22/23 08:00 Pulse Ox 76 L 01/22/23 08:00 FiO2 Intake & Output 01/21/23 01/22/23 01/22/23 18:59 06:59 18:59 Intake Total 280 425 Balance 280 425 Intake: IV 100 Oral 180 425 Other: Voiding Method Toilet Toilet # Voids 1 1 - Labs CBC & Chem 7: 01/22/23 08:20 01/21/23 06:56 Labs: Abnormal Lab Results - Last 24 Hours (Table) 01/21/23 01/21/23 01/21/23 Range/Units 10:39 12:38 14:17 WBC 18.1 H (3.8-10.6) k/uL MCV 100.9 H (80.0-100.0) fL Neutrophils # 16.7 H (1.3-7.7) k/uL Lymphocytes # 0.8 L (1.0-4.8) k/uL POC Glucose (mg/dL) 193 H 171 H (70-110) mg/dL 01/21/23 01/21/23 01/22/23 Range/Units 16:46 20:38 06:30 WBC (3.8-10.6) k/uL MCV (80.0-100.0) fL Neutrophils # (1.3-7.7) k/uL Lymphocytes # (1.0-4.8) k/uL POC Glucose (mg/dL) 298 H 274 H 174 H (70-110) mg/dL 01/22/23 Range/Units 08:20 WBC 16.1 H (3.8-10.6) k/uL MCV 101.3 H (80.0-100.0) fL Neutrophils # 14.8 H (1.3-7.7) k/uL Lymphocytes # 0.8 L (1.0-4.8) k/uL POC Glucose (mg/dL) (70-110) mg/dL
--- NOTE | 2023-01-22 14:23 | P.PN ---
Subjective Progress Note Date: 01/22/23 Patient is a 47-year-old male for history of COPD, diabetes mellitus type 2, hypertension, and ongoing tobacco abuse who presented to the hospital due to weakness, exceptional dyspnea, and lower extremity edema. He was admitted and was started on IV Lasix, bronchodilators, and steroids. Antibiotics were discontinued as pro-calcitonin came back negative. He was seen by cardiology and subsequently underwent cardiac catheterization on 01/21/23 for mildly elevated troponin. This showed nonobstructive mild coronary artery disease. 01/22 Patient was seen and examined. States 75% back to normal. Currently on bronchodilators and Solumedrol. Heparin drip discontinued after cardiac cath showed non obstructive CAD. Weight 158.757kg. Positive 280 cc over the past 24H. CBC shows WBC count 16.1 MCV 101.3. A1c 7.1. INR 1. Vital signs reviewed General: nontoxic, no distress, appears at stated age Cardiovascular: S1S2 reg, no murmur Lungs: CTA bilateral, no rhonchi, no rales , no accessory muscle use Ext: no gross muscle atrophy, no edema b/l lower extremities, no contractures Neuro: no focal neuro deficits Psych: Alert, oriented, appropriate affect Dyspnea, Acute exacerbation of COPD, pneumonia ruled out Non-ST segment elevation myocardial infarction Abnormal EKG Ongoing tobacco abuse Diabetes mellitus type 2 Obseity Class III Based on my assessment of this patient, this patient meets a moderate complexity level of care. Patient has an acute diagnosis of acute on chronic hypoxic hypercapnic respiratory failure leading to acute metabolic encephalopathy that poses a threat to life or bodily function. Dyspnea, Acute exacerbation of COPD, pneumonia ruled out: Procal negative. Echocardiogram pending. Lasix 40 mg IV transitioned to PO. DuoNeb QID scheduled and PRN. Solumedrol 60 mg IV Q6H. Obtain nebulizer at home. Pulm appointment on discharge. Non-ST segment elevation myocardial infarction: Cath showed non obstructive CAD. ASA 81 mg PO QD. Lipitor 80 mg PO QHS. Metoprolol 100 mg PO QD. Abnormal EKG Ongoing tobacco abuse: Encourage to quit. Diabetes mellitus type 2: ISS. Accuchecks ACHS. Hypoglycemic precautions. Obseity Class III: Structured weight loss diet. Resume ozempic on discharge Plan on discharge home if Echo is normal. I have reviewed the following networks software consultant notes: Cardiology note. I have reviewed the results of the following tests: CBC, BMP, A1c I have ordered the following tests: I have discussed the care of this patient with the following independent historian: I have independently interpreted the following test below: I have discussed the management of this patient with the following physician: Objective - Vital Signs Vital signs: Vital Signs Temp 97.7 F 01/22/23 08:00 Pulse 80 01/22/23 08:49 Resp 17 01/22/23 08:00 BP 174/91 01/22/23 08:00 Pulse Ox 76 L 01/22/23 08:00 FiO2 Intake & Output 01/21/23 01/22/23 01/22/23 18:59 06:59 18:59 Intake Total 280 425 Balance 280 425 Intake: IV 100 Oral 180 425 Other: Voiding Method Toilet Toilet # Voids 1 1 - Labs CBC & Chem 7: 01/22/23 08:20 01/21/23 06:56 Labs: Abnormal Lab Results - Last 24 Hours (Table) 01/21/23 01/21/23 01/21/23 Range/Units 10:39 12:38 14:17 WBC 18.1 H (3.8-10.6) k/uL MCV 100.9 H (80.0-100.0) fL Neutrophils # 16.7 H (1.3-7.7) k/uL Lymphocytes # 0.8 L (1.0-4.8) k/uL POC Glucose (mg/dL) 193 H 171 H (70-110) mg/dL 01/21/23 01/21/23 01/22/23 Range/Units 16:46 20:38 06:30 WBC (3.8-10.6) k/uL MCV (80.0-100.0) fL Neutrophils # (1.3-7.7) k/uL Lymphocytes # (1.0-4.8) k/uL POC Glucose (mg/dL) 298 H 274 H 174 H (70-110) mg/dL 01/22/23 Range/Units 08:20 WBC 16.1 H (3.8-10.6) k/uL MCV 101.3 H (80.0-100.0) fL Neutrophils # 14.8 H (1.3-7.7) k/uL Lymphocytes # 0.8 L (1.0-4.8) k/uL POC Glucose (mg/dL) (70-110) mg/dL
[2023-01-22 16:08] LABS: Glucose,Whole Blood 369 mg/dL (70-110)
[2023-01-22] MEDS: HYDROcodone/APAP 7.5-325MG 1 EACH TAB PO PRN ×2 (16:50→20:51)
[2023-01-22 20:36] LABS: Glucose,Whole Blood 294 mg/dL (70-110)
[2023-01-22] MEDS ORDERED: ATORVASTATIN 80 MG TAB PO SCH (21:00)
[2023-01-23 05:13] LABS: Glucose,Whole Blood 153 mg/dL (70-110)
[2023-01-23] MEDS: methylPREDNISolone SOD SUCCI 125 MG/2 ML VIAL IV SCH ×2 (06:16→11:35)
[2023-01-23] MEDS: INSULIN ASPART (NovoLOG) 100 UNIT/ML VIAL SQ SCH ×2 (06:16→11:30)
[2023-01-23] MEDS: HYDROcodone/APAP 7.5-325MG 1 EACH TAB PO PRN (08:25)
[2023-01-23] MEDS: ASPIRIN 81 MG PO SCH (08:26)
[2023-01-23] MEDS: GABAPENTIN 400 MG CAP PO SCH (08:26)
[2023-01-23] MEDS: METOPROLOL SUCCINATE (ER) 100 MG TAB.ER.24H PO SCH (08:26)
[2023-01-23] MEDS: SERTRALINE 100 MG TAB PO SCH (08:27)
[2023-01-23] MEDS: SODIUM CHLORIDE 0.9% 1,000 ML in EMPTY BAG 1 BAG IV SCH (08:36)
[2023-01-23 08:42] VITALS: TEMP 97.8
[2023-01-23] MEDS ORDERED: FUROSEMIDE 40 MG TAB PO SCH (09:00)
[2023-01-23] MEDS: IPRATROPIUM-ALBUTEROL 3 ML NEB INHALATION SCH ×2 (09:00→11:18)
--- NOTE | 2023-01-23 10:28 | P.PN ---
Subjective Progress Note Date: 01/23/23 HISTORY OF PRESENT ILLNESS: The patient is a pleasant 47-year-old gentleman with past medical history sig nificant for overweight and diabetes and hypertension and smoking. He was brought to the hospital by his family. The patient was in his usual state of health about 2 days ago. Woke up from sleep went to the bathroom because he felt nauseated. He tried that he could not. He was weak to get up. He was brought to the emergency department for further evaluation. For the last few days he has been experiencing increasing shortness of breath with exertion associated with bilateral lower extremity edema. He gained weight. No symptoms of any chest pain or chest discomfort but he didn't have an episode of chest tightness days ago. Currently he is chest pain-free. He felt the chest tightness could be related to asthma. The patient underwent workup including EKG and that showed ST changes in the anterolateral leads concerning for severe underlying coronary artery disease. Would be also related to hypertensive heart disease. The first set of troponin came in to be unremarkable. More sets of troponin. The echo was ordered and still pending. Clinically the patient is sitting at 45 angle the and he stated that his the left more short of breath laying flat. He is slightly hypoxic presented to the emergency department currently he is on oxygen and is feeling better. The chest x-ray showed findings consistent with what it seems to be heart failure. He came into the low. The patient is overweight and that could be falsely low. The patient does have multiple risk factors for overweight diabetes and hypertension and he is also a smoker. 01/21/2023 Patient examined this morning at the bedside. Patient currently denies chest pain or pressure. He reports improvement in his shortness of breath. He remains on IV Lasix. Vital signs this morning are stable. Patient was found to have elevated troponin up to 0.147. 01/22 Patient is status post cardiac cath with Dr. Sherwood yesterday which revealed [id number] nonobstructive coronary artery disease with plan for medical treatment. Right wrist access site without bleeding, hematoma. Echocardiogram has been taken and report is pending. Patient denies having any chest pain. He states he feels a little winded moving in his room but that is normal for him. He states he had some heartburn last night usually has it at the nighttime and takes Tums for this. He denies having any fever or chills. No cough. WBC 16. 1, hemoglobin 15.9, platelet count 300. Blood pressure 174/95, heart rate 76- 80, afebrile, pulse ox 91% on room air. Discussed with patient the importance of maintaining statin. 01/23 Echocardiogram reveals EF 45-50%, mild MR, trace TR. Patient's blood pressures remain elevated and started on losartan. PHYSICAL EXAM: VITAL SIGNS: Reviewed. GENERAL: Well-developed in no acute distress. NECK: Supple. No JVD or thyromegaly LUNGS: Respirations even and unlabored. Lungs essentially clear to auscultation bilaterally. HEART: Regular rate and rhythm. S1 and S2 heard. EXTREMITIES: Normal range of motion. No clubbing or cyanosis. Peripheral pulses intact. No lower extremity edema ASSESSMENT: Non-STEMI New onset shortness of breath Abnormal EKG Diabetes Hypertension Morbid obesity Nicotine dependence PLAN: Continue Lasix to oral. Continue at time of discharge Continue aspirin 81 mg daily, atorvastatin 80 mg at night Start patient on losartan 25 mg daily Patient is cleared for discharge home and a follow-up in the office in one to 2 weeks. Nurse practitioner note has been reviewed, I agree with the documented findings and plan of care. Patient was seen and examined. Objective - Vital Signs Vital signs: Vital Signs Temp 97.8 F 01/23/23 08:18 Pulse 77 01/23/23 09:10 Resp 16 01/23/23 08:18 BP 156/98 01/23/23 08:18 Pulse Ox 95 01/23/23 08:18 FiO2 Intake & Output 01/22/23 01/23/23 01/23/23 18:59 06:59 18:59 Intake Total 1315 120 200 Balance 1315 120 200 Intake: Oral 1315 120 200 Other: Voiding Method Toilet Toilet # Voids 2 - Labs CBC & Chem 7: 01/22/23 08:20 01/21/23 06:56 Labs: Abnormal Lab Results - Last 24 Hours (Table) 01/22/23 01/22/23 01/22/23 Range/Units 08:20 11:24 16:07 POC Glucose (mg/dL) 226 H 369 H (70-110) mg/dL Hemoglobin A1c 7.1 H (<=6.0) % 10/10/23 10/11/23 Range/Units 20:35 05:12 POC Glucose (mg/dL) 294 H 153 H (70-110) mg/dL Hemoglobin A1c (<=6.0) %
[2023-01-23] MEDS ORDERED: LOSARTAN 25 MG TAB PO SCH (10:30)
[2023-01-23 11:23] LABS: Glucose,Whole Blood 97 mg/dL (70-110)
--- NOTE | 2023-01-23 11:45 | CA ---
Transthoracic Echo Report Name: Valdo Wren Age: 47 Gender: M : 1975 Exam Date: 01/22/2023 09:20 Exam Location: [facility] Ht (in): 72 Wt (lb): 350 Ordering Physician: Adama Santamaria MD Attending/Referring Phys: Reactor Service Operator Karla Shah [facility] Procedure CPT: Indications: fluid overload Cardiac Hx: Technical Quality: Technically difficult study Contrast 1: Total Dose (mL): Contrast 2: Total Dose (mL): MEASUREMENTS (Male / Female) Normal Values 2D ECHO LV Diastolic Diameter PLAX 6.4 cm 4.2 - 5.9 / 3.9 - 5.3 cm LV Systolic Diameter PLAX 4.9 cm IVS Diastolic Thickness 1.5 cm 0.6 - 1.0 / 0.6 - 0.9 cm LVPW Diastolic Thickness 1.5 cm 0.6 - 1.0 / 0.6 - 0.9 cm LV Relative Wall Thickness 0.5 LVOT Diameter 2.1 cm LV Diastolic Volume MOD BP 124.8 cm??? 67 - 155 / 56 - 104 cm??? LV Systolic Volume MOD BP 68.1 cm??? 22 - 58 / 19 - 49 cm??? LV Ejection Fraction MOD BP 45.5 % >= 55 % LV Cardiac Index MOD BP 1360.6 cm???/min???m??? LV Diastolic Volume MOD 4C 149.9 cm??? LV Systolic Volume MOD 4C 75.7 cm??? LV Ejection Fraction MOD 4C 49.5 % LV Cardiac Index MOD 4C 1778.9 cm???/min???m??? LV Diastolic Length 4C 8.3 cm LV Systolic Length 4C 7.4 cm LV Diastolic Volume MOD 2C 104.2 cm??? LV Systolic Volume MOD 2C 60.2 cm??? LV Ejection Fraction MOD 2C 42.2 % LV Cardiac Index MOD 2C 1054.5 cm???/min???m??? LV Diastolic Length 2C 8.3 cm LV Systolic Length 2C 7.3 cm Ascending Aorta Diameter 4.2 cm M-MODE Aortic Root Diameter MM 3.3 cm LA Systolic Diameter MM 4.6 cm LA Ao Ratio MM 1.4 AV Cusp Separation MM 2.1 cm DOPPLER AV Peak Velocity 165.7 cm/s AV Peak Gradient 11.0 mmHg AV Mean Velocity 123.9 cm/s AV Mean Gradient 6.8 mmHg AV Velocity Time Integral 38.3 cm LVOT Peak Velocity 134.5 cm/s LVOT Peak Gradient 7.2 mmHg LVOT Velocity Time Integral 28.5 cm LVOT Stroke Volume 101.7 cm??? LVOT Stroke Volume Index 37.6 ml/m??? LVOT Cardiac Index 2439.4 cm???/min???m??? AV Area Cont Eq vti 2.7 cm??? AV Area Cont Eq pk 2.9 cm??? Mitral E Point Velocity 95.7 cm/s Mitral A Point Velocity 97.3 cm/s Mitral E to A Ratio 1.0 MV Deceleration Time 252.9 ms LV E' Lateral Velocity 6.7 cm/s Mitral E to LV E' Lateral Ratio 14.2 LV E' Septal Velocity 7.5 cm/s Mitral E to LV E' Septal Ratio 12.8 TR Peak Velocity 255.2 cm/s TR Peak Gradient 26.1 mmHg Right Atrial Pressure 15.0 mmHg Pulmonary Artery Systolic Pressu 41.0 mmHg Right Ventricular Systolic Press 41.0 mmHg FINDINGS Left Ventricle Moderately increased septal wall thickness. Mildly increased left ventricular diastolic diameter. Mildly increased left ventricular systolic volume. Mildly decreased left ventricular ejection fraction. Left ventricular ejection fraction is estimated at 45-50%. Right Ventricle Mild right ventricular dilatation. Moderate pulmonary hypertension. Right Atrium Mild right atrial dilatation. Left Atrium Moderate left atrial dilatation. Mitral Valve Mild thickening/calcification of the posterior mitral valve leaflet. Mild mitral regurgitation. Aortic Valve Aortic valve not well visualized. No aortic valve stenosis or regurgitation. Tricuspid Valve Structurally normal tricuspid valve. Trace tricuspid regurgitation. Pulmonic Valve Pulmonic valve not well visualized. Pericardium No pericardial effusion. Echo free space anterior to the right ventricle likely represents a fat pad. Aorta Normal size aortic root and mildly dilated proximal ascending aorta. CONCLUSIONS Reduced LV systolic function ejection fraction 45% Dilated IVC Mildly dilated right ventricle Moderate pulmonary hypertension By atrial enlargement Previewed by: Dr. Erick Ortiz MD (Electronically Signed) Final Date: 23 January 2023 11:44
[2023-01-23 11:53] VITALS: BP 163/97; PULSE 71; RESP 20
--- NOTE | 2023-01-23 12:20 | P.DS ---
Providers Date of admission: 01/20/23 04:54 Expected date of discharge: 01/23/23 Attending physician: Adama Santamaria MD Consults: 01/20/23 05:22 Consult Physician Urgent Consulting Provider: [facility] Consult Reason/Comments: CHF Do you want consulting provider notified?: Yes, Notify in am Primary care physician: Stated None Hospital Course: Patient is a 47-year-old male for history of COPD, diabetes mellitus type 2, hypertension, and ongoing tobacco abuse who presented to the hospital due to weakness, exceptional dyspnea, and lower extremity edema. He was admitted and was started on IV Lasix, bronchodilators, and steroids. Antibiotics were discontinued as pro-calcitonin came back negative. He was seen by cardiology and subsequently underwent cardiac catheterization on 01/21/23 for mildly elevated troponin. This showed nonobstructive mild-moderate coronary artery disease. 01/22 Patient was seen and examined. States 75% back to normal. Currently on b ronchodilators and Solumedrol. Heparin drip discontinued after cardiac cath showed non obstructive CAD. Weight 158.757kg. Positive 280 cc over the past 24H. CBC shows WBC count 16.1 MCV 101.3. A1c 7.1. INR 1. 01/23 Patient was seen and examined. Reports breathing back to baseline. Discussed with Dr. Gambino, started on Losartan and Lasix in addition to metoprolol for low-normal EF. Continue ASA and Lipitor. Will prescribe Medrol dose pack, Albuterol INH, Symbicort INH and DuoNeb PRN for treatment of COPD exacerbation. Nebulizer to be delivered at bedside prior to discharge. Follow up with Cardio logy and Pulmonology within 1 week of discharge. Pertinent studies include CXR, Chest CTA, Echo. Pertinent procedures include cardiac cath. Vital signs reviewed General: nontoxic, no distress, appears at stated age Cardiovascular: S1S2 reg, no murmur Lungs: CTA bilateral, no rhonchi, no rales , no accessory muscle use Ext: no gross muscle atrophy, no edema b/l lower extremities, no contractures Neuro: no focal neuro deficits Psych: Alert, oriented, appropriate affect Discharge Diagnosis Dyspnea, Acute exacerbation of COPD, pneumonia ruled out Non-ST segment elevation myocardial infarction, Type 2 NH Abnormal EKG Ongoing tobacco abuse Diabetes mellitus type 2 Obseity Class III This complex discharge took 35 minutes to complete Patient Condition at Discharge: Stable Plan - Discharge Summary Discharge Rx Participant: No New Discharge Prescriptions: New Losartan [Cozaar] 25 mg PO DAILY #30 tab Furosemide [Lasix] 40 mg PO DAILY #30 tab methylPREDNISolone Dose Pack [Medrol Dose Pack] 4 mg PO DIRECTED #1 packet Aspirin 81 mg PO DAILY #30 tab Ipratropium-Albuterol Nebulize [Duoneb 0.5 mg-3 mg/3 ml Soln] 3 ml INHALATION RT-QID PRN #120 each PRN Reason: Shortness Of Breath Or Wheezing Atorvastatin [Lipitor] 80 mg PO HS #30 tab Budesonide-Formot 160-4.5 Mcg [Symbicort 160-4.5 Mcg Inhaler] 2 puff INHALATION BID #1 each Continue Sertraline [Zoloft] 100 mg PO DAILY metFORMIN HCL [Glucophage] 500 mg PO DAILY Semaglutide [Ozempic] 1 mg SQ SA Tiotropium 2.5 Mcg/Puff [Spiriva Respimat 2.5 Mcg] 2 puff INHALATION RT-BID #1 each Albuterol Inhaler [Ventolin Hfa Inhaler] 2 puff INHALATION RT-QID PRN #1 each PRN Reason: Shortness Of Breath Simethicone [Gas-X] 250 mg PO ACHS PRN PRN Reason: GAS HYDROcodone/APAP 7.5-325MG [[place] 7.5-325] 1 tab PO TID PRN PRN Reason: Pain Gabapentin 800 mg PO TID Loperamide [Imodium] 4 mg PO QID PRN PRN Reason: Diarrhea Metoprolol Succinate (ER) [Toprol XL] 100 mg PO DAILY #30 tab Discontinued Losartan/Hydrochlorothiazide [Losartan-Hctz 100-25 mg Tab] 1 tab PO DAILY Discharge Medication List Gabapentin 800 mg PO TID 01/20/23 [History] HYDROcodone/APAP 7.5-325MG [[place] 7.5-325] 1 tab PO TID PRN 01/20/23 [History] Loperamide [Imodium] 4 mg PO QID PRN 01/20/23 [History] Semaglutide [Ozempic] 1 mg SQ SA 01/20/23 [History] Sertraline [Zoloft] 100 mg PO DAILY 01/20/23 [History] Simethicone [Gas-X] 250 mg PO ACHS PRN 01/20/23 [History] metFORMIN HCL [Glucophage] 500 mg PO DAILY 01/20/23 [History] Albuterol Inhaler [Ventolin Hfa Inhaler] 2 puff INHALATION RT-QID PRN #1 each 01/23/23 [Rx] Aspirin 81 mg PO DAILY #30 tab 01/23/23 [Rx] Atorvastatin [Lipitor] 80 mg PO HS #30 tab 01/23/23 [Rx] Budesonide-Formot 160-4.5 Mcg [Symbicort 160-4.5 Mcg Inhaler] 2 puff INHALATION BID #1 each 01/23/23 [Rx] Furosemide [Lasix] 40 mg PO DAILY #30 tab 01/23/23 [Rx] Ipratropium-Albuterol Nebulize [Duoneb 0.5 mg-3 mg/3 ml Soln] 3 ml INHALATION RT-QID PRN #120 each 01/23/23 [Rx] Losartan [Cozaar] 25 mg PO DAILY #30 tab 01/23/23 [Rx] Metoprolol Succinate (ER) [Toprol XL] 100 mg PO DAILY #30 tab 01/23/23 [Rx] Tiotropium 2.5 Mcg/Puff [Spiriva Respimat 2.5 Mcg] 2 puff INHALATION RT-BID #1 each 01/23/23 [Rx] methylPREDNISolone Dose Pack [Medrol Dose Pack] 4 mg PO DIRECTED #1 packet 01/23/23 [Rx] Follow up Appointment(s)/Referral(s): Laura Mendez MD [STAFF PHYSICIAN] - 02/08/23 1:45 pm Edwin Sherwood MD [STAFF PHYSICIAN] - 1 Week (Office to pull your records and call you with appointment date/time.) None,Stated [Primary Care Provider] - 1-2 days (Please follow up with Dr. Vishnu Vega (your PCP) [facility] after discharge. If no sooner appointments available, keep your previously scheduled appointment.) Patient Instructions/Handouts: Heart Failure (DC), COPD (Chronic Obstructive Pulmonary Disease) (DC), Heart Catheterization (DC) Discharge Disposition: HOME SELF-CARE
== END 2023-01-23 13:05 | disposition home or self-care (01) | DRG 190 ==
LOC: EC 01:45 → 5NMEDONC 04:54 → 3SCARD 01-21 14:15
PROVIDERS: ADMIT Internal Medicine; ATTEND Internal Medicine
PROC: B2111ZZ Fluoroscopy of Multiple Coronary Arteries using Low Osmolar Contrast (ICD-10-PCS; principal; 2023-01-21 13:30)
DX: I21.4 Non-ST elevation (NSTEMI) myocardial infarction (principal); Z20.822 Contact with and (suspected) exposure to COVID-19; J96.21 Acute and chronic respiratory failure with hypoxia; G93.41 Metabolic encephalopathy; J96.22 Acute and chronic respiratory failure with hypercapnia; I25.10 Atherosclerotic heart disease of native coronary artery without angina pectoris; I11.0 Hypertensive heart disease with heart failure; I50.9 Heart failure, unspecified; E11.9 Type 2 diabetes mellitus without complications; E66.01 Morbid (severe) obesity due to excess calories; E66.3 Overweight; I08.1 Rheumatic disorders of both mitral and tricuspid valves; J44.1 Chronic obstructive pulmonary disease with (acute) exacerbation; F17.210 Nicotine dependence, cigarettes, uncomplicated; Z68.42 Body mass index [BMI] 45.0-49.9, adult; Z79.899 Other long term (current) drug therapy; Z79.82 Long term (current) use of aspirin; Z79.84 Long term (current) use of oral hypoglycemic drugs; Z82.49 Family history of ischemic heart disease and other diseases of the circulatory system; Z71.6 Tobacco abuse counseling
CPT/HCPCS: 36415; 36600; 71046; 71275; 80048; 80053; 81003; 82150; 82805; 83036; 83690; 83880; 84145; 84484; 85025; 85027; 85379; 85610; 85730; 87636; 93005; 93306; 93454; 94640; 94760; 96361; 96365; 96366; 96375; 96376; 99285

== ENCOUNTER 2023-08-26 10:59 | Observation (INO) | payer OTHER ==
--- NOTE | 2023-08-26 11:32 | ED ---
General Adult HPI - General Chief complaint: Chest Pain Stated complaint: Chest Pain Time Seen by Provider: 08/26/23 11:18 Source: patient, RN notes reviewed Mode of arrival: ambulatory Limitations: no limitations - History of Present Illness Initial comments: Patient is a 47-year-old male present to the emergency department with concerns with chest discomfort. Onset of symptoms was around 11:00 last night. Discomfort has been steady. Discomfort is rated 5 or 6. Discomfort feels like tightness. There is some mild associated sweating sensation and dyspnea. No history of similar symptoms previously. - Related Data Home Medications Medication Instructions Recorded Confirmed Gabapentin 800 mg PO TID 01/20/23 01/20/23 HYDROcodone/APAP 7.5-325MG [[place] 1 tab PO TID PRN 01/20/23 01/20/23 7.5-325] Loperamide [Imodium] 4 mg PO QID PRN 01/20/23 01/20/23 Semaglutide [Ozempic] 1 mg SQ SA 01/20/23 01/20/23 Sertraline [Zoloft] 100 mg PO DAILY 01/20/23 01/20/23 Simethicone [Gas-X] 250 mg PO ACHS PRN 01/20/23 01/20/23 metFORMIN HCL [Glucophage] 500 mg PO DAILY 01/20/23 01/20/23 Previous Rx's Medication Instructions Recorded Albuterol Inhaler [Ventolin Hfa 2 puff INHALATION RT-QID PRN #1 01/23/23 Inhaler] each Aspirin 81 mg PO DAILY #30 tab 01/23/23 Atorvastatin [Lipitor] 80 mg PO HS #30 tab 01/23/23 Budesonide-Formot 160-4.5 Mcg 2 puff INHALATION BID #1 each 01/23/23 [Symbicort 160-4.5 Mcg Inhaler] Furosemide [Lasix] 40 mg PO DAILY #30 tab 01/23/23 Ipratropium-Albuterol Nebulize 3 ml INHALATION RT-QID PRN #120 01/23/23 [Duoneb 0.5 mg-3 mg/3 ml Soln] each Losartan [Cozaar] 25 mg PO DAILY #30 tab 01/23/23 Metoprolol Succinate (ER) [Toprol 100 mg PO DAILY #30 tab 01/23/23 XL] Tiotropium 2.5 Mcg/Puff [Spiriva 2 puff INHALATION RT-BID #1 each 01/23/23 Respimat 2.5 Mcg] methylPREDNISolone Dose Pack 4 mg PO DIRECTED #1 packet 01/23/23 [Medrol Dose Pack] Allergies Allergy/AdvReac Type Severity Reaction Status Date / Time No Known Allergies Allergy Verified 08/26/23 12:31 Review of Systems ROS Statement: Those systems with pertinent positive or pertinent negative responses have been documented in the HPI. ROS Other: All systems not noted in ROS Statement are negative. Constitutional: Denies: fever Eyes: Denies: eye pain ENT: Denies: ear pain Respiratory: Reports: as per HPI. Denies: cough Cardiovascular: Reports: as per HPI, chest pain Endocrine: Denies: fatigue Gastrointestinal: Denies: abdominal pain Genitourinary: Denies: dysuria Musculoskeletal: Reports: back pain (Patient feels it does radiate towards the back) Past Medical History Past Medical History: Diabetes Mellitus Additional Past Medical History / Comment(s): kidney stones History of Any Multi-Drug Resistant Organisms: None Reported Past Surgical History: No Surgical Hx Reported Additional Past Surgical History / Comment(s): uvula removed, shaved palate Past Anesthesia/Blood Transfusion Reactions: No Reported Reaction Past Psychological History: No Psychological Hx Reported Smoking Status: Current every day smoker Past Alcohol Use History: Rare Past Drug Use History: Marijuana - Past Family History Mother Family Medical History: Congestive Heart Failure (CHF) Additional Family Medical History / Comment(s): passed 2008 post hernia repair General Exam Limitations: no limitations General appearance: alert, in no apparent distress Head exam: Present: normocephalic Eye exam: Present: normal appearance Neck exam: Present: normal inspection Respiratory exam: Present: normal lung sounds bilaterally Cardiovascular Exam: Present: regular rate, normal rhythm Expanded Peripheral pulses: 2+: Radial (R), Radial (L), Posterior Tibialis (R), Posterior Tibialis (L) GI/Abdominal exam: Present: soft. Absent: tenderness Extremities exam: Present: normal inspection. Absent: pedal edema, calf tenderness Neurological exam: Present: alert Psychiatric exam: Present: normal affect, normal mood Skin exam: Present: normal color Course Vital Signs 08/26/23 08/26/23 08/26/23 11:05 11:30 11:51 Temperature 99.1 F Pulse Rate 72 73 68 Respiratory 16 22 18 Rate Blood Pressure 181/101 154/89 133/71 O2 Sat by Pulse 95 98 Oximetry EKG Findings - EKG Results: EKG: interpreted by MELISSAD (Lateral T wave inversion), sinus rhythm, normal axis, normal QRS, not changed from: (January 20, 2023) Medical Decision Making - Medical Decision Making Was pt. sent in by a medical professional or institution (, [facility], [employer], urgent care, hospital, or penitentiary...) When possible be specific @ -No Did you speak to anyone other than the patient for history (EMS, parent, family, police, friend...)? What history was obtained from this source @ -No Did you review nursing and triage notes (agree or disagree)? Why? @ -I reviewed and agree with nursing and triage notes Were old charts reviewed (outside hosp., previous admission, EMS record, old EKG, old radiological studies, urgent care reports/EKG's, penitentiary records)? Report findings @ -Previous EKG reviewed with similar findings, see above Differential Diagnosis (chest pain, altered mental status, abdominal pain women, abdominal pain men, vaginal bleeding, weakness, fever, dyspnea, syncope, headache, dizziness, GI bleed, back pain, seizure, CVA, palpatations, mental health, musculoskeletal)? @ -Differential Chest Pain: Stable Angina, Unstable Angina, STEMI, NSTEMI Aortic Dissection, Pneumothorax, Musculoskeletal, Esophageal Spasm GERD, Cholecystitis, Pancreatitis, Zoster, this is not meant to be an all-inclusive list. EKG interpreted by me (3pts min.). @ -As above X-rays interpreted by me (1pt min.). @ -Chest x-ray shows no acute process CT interpreted by me (1pt min.). @ -None done U/S interpreted by me (1pt. min.). @ -None done What testing was considered but not performed or refused? (CT, X-rays, U/S, labs)? Why? @ -None What meds were considered but not given or refused? Why? @ -None Did you discuss the management of the patient with other professionals (professionals i.e. , [facility], [employer], lab, RT, psych nurse, social service agency director, plastic card grader cardroom, teacher, title officer, sample case porter)? Give summary @ -Case was discussed with Dr. Vega, who will admit his patient. Was smoking cessation discussed for >3mins.? @ -No Was critical care preformed (if so, how long)? @ -No Were there social determinants of health that impacted care today? How? (Homelessness, low income, unemployed, alcoholism, drug addiction, transportation, low edu. Level, literacy, decrease access to med. care, nursing home, rehab)? @ -No Was there de-escalation of care discussed even if they declined (Discuss DNR or withdrawal of care, Hospice)? DNR status @ -No What co-morbidities impacted this encounter? (DM, HTN, Smoking, COPD, CAD, Cancer, CVA, ARF, Chemo, Hep., AIDS, mental health diagnosis, sleep apnea, morbid obesity)? @ -None Was patient admitted / discharged? Hospital course, mention meds given and route, prescriptions, significant lab abnormalities, going to OR and other pertinent info. @ -Patient reevaluated and symptoms improved with nitroglycerin. Patient resting comfortably in bed. Patient and family updated on results and plan. Patient will be admitted. Admission orders written. Undiagnosed new problem with uncertain prognosis? @ -No Drug Therapy requiring intensive monitoring for toxicity (Heparin, Nitro, Insulin, Cardizem)? @ -No Were any procedures done? @ -No Diagnosis/symptom? @ -Chest pain Acute, or Chronic, or Acute on Chronic? @ -Acute Uncomplicated (without systemic symptoms) or Complicated (systemic symptoms)? @ -Default Side effects of treatment? @ -No Exacerbation, Progression, or Severe Exacerbation? @ -No Poses a threat to life or bodily function? How? (Chest pain, [place], CA, pneumonia, PE, COPD, DKA, ARF, appy, cholecystitis, CVA, Diverticulitis, Homicidal, Suicidal, threat to staff... and all critical care pts) @ -No - Lab Data Result diagrams: 08/26/23 11:31 08/26/23 11:31 Lab Results 08/26/23 08/26/23 08/26/23 Range/Units 11:31 11:31 11:31 WBC 10.9 H (3.8-10.6) k/uL RBC 4.86 (4.30-5.90) m/uL Hgb 15.5 (13.0-17.5) gm/dL Hct 47.8 (39.0-53.0) % MCV 98.3 (80.0-100.0) fL MCH 31.9 (25.0-35.0) pg MCHC 32.4 (31.0-37.0) g/dL RDW 13.5 (11.5-15.5) % Plt Count 233 (150-450) k/uL MPV 9.5 Neutrophils % 70 % Lymphocytes % 18 % Monocytes % 8 % Eosinophils % 2 % Basophils % 1 % Neutrophils # 7.6 (1.3-7.7) k/uL Lymphocytes # 1.9 (1.0-4.8) k/uL Monocytes # 0.8 (0-1.0) k/uL Eosinophils # 0.2 (0-0.7) k/uL Basophils # 0.1 (0-0.2) k/uL PT 10.5 (10.0-12.5) sec INR 1.0 (<1.2) APTT 25.5 (22.0-30.0) sec D-Dimer 0.33 (<0.60) mg/L FEU Sodium 141 (137-145) mmol/L Potassium 3.8 (3.5-5.1) mmol/L Chloride 108 H (98-107) mmol/L Carbon Dioxide 26 (22-30) mmol/L Anion Gap 7 mmol/L BUN 18 (9-20) mg/dL Creatinine 0.79 (0.66-1.25) mg/dL Est GFR (CKD-EPI)AfAm >90 (>60 ml/min/1.73 sqM) Est GFR (CKD-EPI)NonAf >90 (>60 ml/min/1.73 sqM) Glucose 111 H (74-99) mg/dL Calcium 8.9 (8.4-10.2) mg/dL Magnesium 1.7 (1.6-2.3) mg/dL Total Bilirubin 0.8 (0.2-1.3) mg/dL AST 24 (17-59) U/L ALT 37 (4-49) U/L Alkaline Phosphatase 82 (38-126) U/L Troponin I (0.000-0.034) ng/mL Total Protein 6.3 (6.3-8.2) g/dL Albumin 3.7 (3.5-5.0) g/dL 08/26/23 Range/Units 11:31 WBC (3.8-10.6) k/uL RBC (4.30-5.90) m/uL Hgb (13.0-17.5) gm/dL Hct (39.0-53.0) % MCV (80.0-100.0) fL MCH (25.0-35.0) pg MCHC (31.0-37.0) g/dL RDW (11.5-15.5) % Plt Count (150-450) k/uL MPV Neutrophils % % Lymphocytes % % Monocytes % % Eosinophils % % Basophils % % Neutrophils # (1.3-7.7) k/uL Lymphocytes # (1.0-4.8) k/uL Monocytes # (0-1.0) k/uL Eosinophils # (0-0.7) k/uL Basophils # (0-0.2) k/uL PT (10.0-12.5) sec INR (<1.2) APTT (22.0-30.0) sec D-Dimer (<0.60) mg/L FEU Sodium (137-145) mmol/L Potassium (3.5-5.1) mmol/L Chloride (98-107) mmol/L Carbon Dioxide (22-30) mmol/L Anion Gap mmol/L BUN (9-20) mg/dL Creatinine (0.66-1.25) mg/dL Est GFR (CKD-EPI)AfAm (>60 ml/min/1.73 sqM) Est GFR (CKD-EPI)NonAf (>60 ml/min/1.73 sqM) Glucose (74-99) mg/dL Calcium (8.4-10.2) mg/dL Magnesium (1.6-2.3) mg/dL Total Bilirubin (0.2-1.3) mg/dL AST (17-59) U/L ALT (4-49) U/L Alkaline Phosphatase (38-126) U/L Troponin I <0.012 (0.000-0.034) ng/mL Total Protein (6.3-8.2) g/dL Albumin (3.5-5.0) g/dL Disposition Clinical Impression: Chest pain Disposition: ADMITTED IP TO THIS HOSP Is patient prescribed a controlled substance at d/c from ED?: No Referrals: Vishnu Vega MD [Primary Care Provider] - 1-2 days Time of Disposition: 12:33
[2023-08-26] MEDS: ASPIRIN 81 MG PO STA (11:35)
[2023-08-26] MEDS: NITROGLYCERIN SL TABS 0.4 MG TAB SUBLINGUAL STA ×3 (11:35→12:39)
[2023-08-26 11:42] LABS: Basophils # (A) 0.1 k/uL (0-0.2); Basophils % (A) 1 %; Eosinophils # (A) 0.2 k/uL (0-0.7); Eosinophils % (A) 2 %; HCT 47.8 % (39.0-53.0); HGB 15.5 gm/dL (13.0-17.5); Lymphocytes # (A) 1.9 k/uL (1.0-4.8); Lymphocytes % (A) 18 %; MCH 31.9 pg (25.0-35.0); MCHC 32.4 g/dL (31.0-37.0); MCV 98.3 fL (80.0-100.0); Mean Platelet Volume 9.5; Monocytes # (A) 0.8 k/uL (0-1.0); Monocytes % (A) 8 %; Neutrophils # (A) 7.6 k/uL (1.3-7.7); Neutrophils % (A) 70 %; Platelet Count 233 k/uL (150-450); RBC 4.86 m/uL (4.30-5.90); RDW 13.5 % (11.5-15.5); WBC 10.9 k/uL (3.8-10.6)
[2023-08-26 11:55] LABS: Partial Thromboplastin Time 25.5 sec (22.0-30.0); Prothrombin Time 10.5 sec (10.0-12.5)
--- NOTE | 2023-08-26 12:00 | XR ---
EXAMINATION TYPE: XR chest 2V DATE OF EXAM: 08/26/2023 COMPARISON: 01/21/2023 HISTORY: Chest pain TECHNIQUE: Frontal and lateral views of the chest are obtained. FINDINGS: There is no focal air space opacity. No evidence for pneumothorax. No pleural effusion. The cardiac silhouette size is within normal limits. The osseous structures are grossly intact. IMPRESSION: 1. No acute cardiopulmonary process.
[2023-08-26 12:04] LABS: ALT 37 U/L (4-49); AST 24 U/L (17-59); African American GFR (CKD) >90 (>60 ml/min/1.73 sqM); Albumin 3.7 g/dL (3.5-5.0); Alkaline Phosphatase 82 U/L (38-126); Anion Gap 7 mmol/L; Blood Urea Nitrogen 18 mg/dL (9-20); Calcium 8.9 mg/dL (8.4-10.2); Carbon Dioxide 26 mmol/L (22-30); Chloride 108 mmol/L (98-107); Glucose 111 mg/dL (74-99); Magnesium 1.7 mg/dL (1.6-2.3); Non-African American GFR(CKD) >90 (>60 ml/min/1.73 sqM); Potassium 3.8 mmol/L (3.5-5.1); Sodium 141 mmol/L (137-145); Total Bilirubin 0.8 mg/dL (0.2-1.3); Total Protein 6.3 g/dL (6.3-8.2)
[2023-08-26] MEDS ORDERED: NITROGLYCERIN SL TABS 0.4 MG TAB SUBLINGUAL PRN (12:33)
--- NOTE | 2023-08-26 13:29 | P.CRDCN ---
History of Present Illness Consult date: 08/26/23 Consult reason: chest pain History of present illness: History of present illness: This is a 47-year-old male patient of Dr. Sherwood with past medical history of mild coronary artery disease, diabetes, hypertension, dyslipidemia, nonischemic cardiomyopathy, overweight, COPD, tobacco use and dependence. We have been asked to evaluate the patient for chest pain. Patient states that he had new onset of chest pain last evening along with difficulty in breathing. He is not normally active. The pain has been on and off throughout the night. Not sure what seems to make it better or worse. He also has some dizziness and lightheadedness. He denies palpitations. He has more shortness of breath with any movement. No nausea or vomiting. No blood in his stools. His states that a couple nights ago he had significant left lower extremity edema and took Lasix which she does as needed. This has improved. Moving his upper body seems to make the chest pain worse. Taking a deep breath makes the pain better. Patient is seen today in the emergency center waiting for bed on the observation unit. Patient is a smoker 1 pack/day. EKG sinus rhythm Chest x-ray: No acute process Troponin negative x 1. WBC 10.9, hemoglobin 15.5. D-dimer 0.33. Sodium 141, potassium 3.8, BUN 18 creatinine 0.79. Magnesium 1.7. Home cardiac medications: Aspirin 81 mg daily, atorvastatin 80 mg at bedtime, losartan 25 mg daily, Toprol-XL 100 mg daily. Cardiac catheterization performed 01/21/2023 revealed mild to moderate coronary artery disease. Echocardiogram performed 01/20/2023 revealed EF of 45%, moderate pulmonary hypertension, mildly dilated RV. Review Of Systems: At the time of my exam: CONSTITUTIONAL: Denies fever or chills. HEENT: Denies blurred vision, vision changes, or eye pain. Denies hemoptysis CARDIOVASCULAR: Reports intermittent chest pain. Denies orthopnea. Denies PND. Denies palpitations RESPIRATORY: Denies shortness of breath. GASTROINTESTINAL: Denies abdominal pain. Denies nausea or vomiting. HEMATOLOGIC: Denies bleeding disorders. GENITOURINARY: Denies any blood in urine. SKIN: Denies pruitis. Denies rash. Physical examination: Gen: This is a 47-year-old morbidly obese male in no acute distress. VS: reviewed HEENT: Head is atraumatic, normocephalic. Pupils equal, round. Sclerae is anicteric. NECK: Supple. No JVD. LUNGS: Decreased air exchange. No intercostal retractions. HEART: Regular rate and rhythm. no murmur. ABDOMEN: Soft No tenderness. EXTREMITIES: 1+ bilateral pedal edema. No calf tenderness. NEUROLOGICAL: Patient is awake, alert and oriented x3. Assessment: Chest pain, rule out non-ST elevated myocardial infarction History of mild coronary artery disease Diabetes mellitus type 2 Hypertension Dyslipidemia Nonischemic cardiomyopathy Morbid obesity with BMI of 53 Tobacco use and dependence Plan: Resume patient's home cardiac medications Start patient on IV Lasix 40 mg every 12 hours Monitor CATHY, daily weights, electrolytes and renal function Repeat BNP in the morning Discontinue Nitropaste Obtain 2-D echocardiogram and Doppler study to assess cardiac structure and function Smoking cessation discussed with the patient. Patient will be to [place] [facility]. Further recommendations to follow based upon clinical course Thank you kindly for this consultation. Nurse practitioner note has been reviewed, I agree with documented findings and plan of care. Patient was seen and examined. Past Medical History Past Medical History: Diabetes Mellitus Additional Past Medical History / Comment(s): kidney stones History of Any Multi-Drug Resistant Organisms: None Reported Past Surgical History: No Surgical Hx Reported Additional Past Surgical History / Comment(s): uvula removed, shaved palate Past Anesthesia/Blood Transfusion Reactions: No Reported Reaction Past Psychological History: No Psychological Hx Reported Smoking Status: Current every day smoker Past Alcohol Use History: Rare Past Drug Use History: Marijuana - Past Family History Mother Family Medical History: Congestive Heart Failure (CHF) Additional Family Medical History / Comment(s): passed 2008 post hernia repair Medications and Allergies Home Medications Medication Instructions Recorded Confirmed Type HYDROcodone/APAP 7.5-325MG [Honeydew 1 tab PO TID PRN 01/20/23 08/26/23 History 7.5-325] Sertraline [Zoloft] 100 mg PO DAILY 01/20/23 08/26/23 History metFORMIN HCL [Glucophage] 500 mg PO DAILY 01/20/23 08/26/23 History Atorvastatin [Lipitor] 80 mg PO HS #30 tab 01/23/23 08/26/23 Rx Losartan [Cozaar] 25 mg PO DAILY #30 tab 01/23/23 08/26/23 Rx Metoprolol Succinate (ER) [Toprol 100 mg PO DAILY #30 tab 01/23/23 08/26/23 Rx XL] Aspirin 81 mg PO HS 08/26/23 08/26/23 History Budesonide-Formot 160-4.5 Mcg 2 puff INHALATION RT-BID 08/26/23 08/26/23 History [Symbicort 160-4.5 Mcg Inhaler] Cyclobenzaprine [Flexeril] 10 mg PO BID 08/26/23 08/26/23 History Fexofenadine HCl [Loraine Allergy] 180 mg PO DAILY 08/26/23 08/26/23 History Montelukast [Singulair] 10 mg PO DAILY 08/26/23 08/26/23 History Pantoprazole [Protonix] 40 mg PO HS 08/26/23 08/26/23 History Sildenafil Citrate [Viagra] 100 mg PO DAILY PRN 08/26/23 08/26/23 History Tiotropium 2.5 Mcg/Puff [Spiriva 2 puff INHALATION RT-DAILY 08/26/23 08/26/23 History Respimat 2.5 Mcg] terbinafine HCL 250 mg PO DAILY 08/26/23 08/26/23 History Allergies Allergy/AdvReac Type Severity Reaction Status Date / Time No Known Allergies Allergy Verified 08/26/23 12:31 Physical Exam Vitals: Vital Signs Temp Pulse Resp BP Pulse Ox 08/26/23 11:51 68 18 133/71 98 08/26/23 11:30 73 22 154/89 08/26/23 11:05 99.1 F 72 16 181/101 95 Intake and Output 08/25/23 08/26/23 08/26/23 22:59 06:59 14:59 Other: Weight 150.139 kg Results 08/26/23 11:31 08/26/23 11:31 Cardiac Enzymes 08/26/23 08/26/23 Range/Units 11:31 11:31 AST 24 (17-59) U/L Troponin I <0.012 (0.000-0.034) ng/mL Coagulation 08/26/23 Range/Units 11:31 PT 10.5 (10.0-12.5) sec APTT 25.5 (22.0-30.0) sec CBC 08/26/23 Range/Units 11:31 WBC 10.9 H (3.8-10.6) k/uL RBC 4.86 (4.30-5.90) m/uL Hgb 15.5 (13.0-17.5) gm/dL Hct 47.8 (39.0-53.0) % Plt Count 233 (150-450) k/uL Comprehensive Metabolic Panel 08/26/23 Range/Units 11:31 Sodium 141 (137-145) mmol/L Potassium 3.8 (3.5-5.1) mmol/L Chloride 108 H (98-107) mmol/L Carbon Dioxide 26 (22-30) mmol/L BUN 18 (9-20) mg/dL Creatinine 0.79 (0.66-1.25) mg/dL Glucose 111 H (74-99) mg/dL Calcium 8.9 (8.4-10.2) mg/dL AST 24 (17-59) U/L ALT 37 (4-49) U/L Alkaline Phosphatase 82 (38-126) U/L Total Protein 6.3 (6.3-8.2) g/dL Albumin 3.7 (3.5-5.0) g/dL Current Medications Generic Name Dose Route Start Last Admin Trade Name Freq PRN Reason Stop Dose Admin Aspirin 325 mg 08/27/23 09:00 Aspirin 325 Mg Tab PO DAILY KENY Nitroglycerin 0.4 mg 08/26/23 12:33 Nitroglycerin Sl Tabs 0.4 Mg Tab SUBLINGUAL Q5M PRN Chest Pain Nitroglycerin 1 inch 08/26/23 18:00 Nitroglycerin Oint 1 Inch/Gm Packet TOPICAL Q6HR KENY Intake and Output 08/25/23 08/26/23 08/26/23 22:59 06:59 14:59 Other: Weight 150.139 kg Patient Weight 08/27/23 06:59 Weight 150.139 kg 08/26/23 11:31 08/26/23 11:31
[2023-08-26] MEDS: FUROSEMIDE 10 MG/ML 4 ML VIAL IV SCH (13:51)
[2023-08-26] MEDS ORDERED: NITROGLYCERIN OINT 1 INCH/GM PACKET TOPICAL SCH (18:00)
[2023-08-26] MEDS: SYMBICORT 160-4.5 MCG INHALER INHALATION SCH (18:08)
[2023-08-26] MEDS: IPRATROPIUM-ALBUTEROL 3 ML NEB INHALATION SCH (18:08)
[2023-08-26] MEDS: CYCLOBENZAPRINE 10 MG TAB PO SCH (21:13)
[2023-08-26] MEDS: ASPIRIN 81 MG PO SCH (21:13)
[2023-08-26] MEDS: ATORVASTATIN 80 MG TAB PO SCH (21:13)
[2023-08-26] MEDS: PANTOPRAZOLE 40 MG TABLET PO SCH (21:13)
--- NOTE | 2023-08-27 02:50 | HP ---
HISTORY AND PHYSICAL HISTORY OF PRESENT ILLNESS: A 47-year-old white male, history of mild coronary artery disease, hypertension, dyslipidemia, nonischemic cardiomyopathy, overweight, COPD, nicotine addiction, came for chest pain to the hospital, came in last evening with difficulty breathing, dizziness, lightheadedness. Denies palpitations. More shortness of breath with any movement. No blood in his stools. No hemoptysis. He has worsening of his left lower extremity edema, took Lasix. Taking deep breath makes the pain better. Smokes 1 pack a day. PAST MEDICAL HISTORY: Reviewed. REVIEW OF SYSTEMS: Otherwise negative. LABORATORY DATA: Troponin negative. White count 10.9, hemoglobin is 15.5. D-dimer is 0.33, creatinine 0.79. HOME MEDICINES: Reviewed. He is on 1. Losartan. 2. Atorvastatin. 3. Aspirin. 4. He is getting IV Lasix 40 every 12. 5. He is off nitroglycerin paste. 6. [place] 7.5 t.i.d. 7. Zoloft 100 daily. 8. Metformin 500 daily. 9. Lipitor 80 daily. 10.Cozaar 25 daily. 11.Toprol-XL 100 daily. 12.Symbicort 160/4.5 two puffs b.i.d. 13.Spiriva inhalers. 14.Flexeril 10 b.i.d. 15.Loraien 180 daily. 16.Singulair 10 daily. 17.Protonix 40 daily. 18.Sildenafil 100 mg daily p.r.n. 19.Terbinafine. ALLERGIES: Negative. PHYSICAL EXAMINATION: GENERAL: He is in no acute distress. VITAL SIGNS: Reviewed. HEENT: Normocephalic, atraumatic. LUNGS: Decreased air flow. HEART: S1, S2. ABDOMEN: Soft, nontender. EXTREMITIES: Bilateral pedal edema. NEUROLOGIC: Cranial nerves intact. ASSESSMENT AND PLAN: 2D echo is pending. Smoking cessation. He is to rule out STEMI. COPD, hypertension, nonischemic cardiomyopathy, morbid obesity, nicotine addiction, hypertension, diabetes mellitus. Start him on breathing treatments. He is to rule out ND. Continue current treatment. Prognosis guarded. MMODL / IJN: [id number] /
[2023-08-27 08:57] LABS: Glucose,Whole Blood 122 mg/dL (70-110)
[2023-08-27] MEDS ORDERED: ASPIRIN 325 MG TAB PO SCH (09:00)
[2023-08-27] MEDS: LOSARTAN 25 MG TAB PO SCH (09:01)
[2023-08-27] MEDS: FUROSEMIDE 40 MG TAB PO SCH (09:01)
[2023-08-27] MEDS: LORATADINE 10 MG TAB PO SCH (09:01)
[2023-08-27] MEDS: MONTELUKAST 10 MG TAB PO SCH (09:01)
[2023-08-27] MEDS: metFORMIN 500 MG TAB PO SCH (09:01)
[2023-08-27] MEDS: IPRATROPIUM 0.5 MG/2.5 ML NEBU INHALATION SCH (09:06)
--- NOTE | 2023-08-27 09:13 | CA ---
Transthoracic Echo Report Name: Valdo Wren Age: 47 Gender: M : 1975 Exam Date: 08/26/2023 13:17 Exam Location: [facility] Ht (in): 66 Wt (lb): 331 Ordering Physician: Nick Stewart DO Attending/Referring Phys: Crm Technical Lead Nikki Ha RDCS Procedure CPT: Indications: CP Cardiac Hx: Technical Quality: Technically difficult study Contrast 1: Definity Total Dose (mL): 2 Contrast 2: Total Dose (mL): MEASUREMENTS (Male / Female) Normal Values 2D ECHO LV Diastolic Diameter PLAX 4.9 cm 4.2 - 5.9 / 3.9 - 5.3 cm LV Systolic Diameter PLAX 3.7 cm IVS Diastolic Thickness 1.6 cm 0.6 - 1.0 / 0.6 - 0.9 cm LVPW Diastolic Thickness 1.7 cm 0.6 - 1.0 / 0.6 - 0.9 cm LV Relative Wall Thickness 0.7 RV Internal Dim ED PLAX 3.5 cm LA Systolic Diameter LX 4.5 cm 3.0 - 4.0 / 2.7 - 3.8 cm LA Volume 80.8 cm??? 18 - 58 / 22 - 52 cm??? LA Volume Index 29.5 cm???/m??? 16 - 28 cm???/m??? M-MODE Aortic Root Diameter MM 4.5 cm MV E Point Septal Separation 1.2 cm AV Cusp Separation MM 2.9 cm DOPPLER AV Peak Velocity 162.9 cm/s AV Peak Gradient 10.6 mmHg MV Area PHT 1.8 cm??? Mitral E Point Velocity 85.6 cm/s Mitral A Point Velocity 84.7 cm/s Mitral E to A Ratio 1.0 MV Deceleration Time 426.2 ms TR Peak Velocity 285.8 cm/s TR Peak Gradient 32.7 mmHg Right Ventricular Systolic Press 37.0 mmHg FINDINGS Left Ventricle Left ventricular ejection fraction is estimated at 50-55 %. Left ventricular cavity size normal.Normal left ventricular systolic function with no obvious regional wall motion abnormalities. Moderately increased left ventricular wall thickness. Right Ventricle Mild right ventricular dilatation. Mild pulmonary hypertension. Right Atrium Normal right atrial size. Left Atrium Mildly increased left atrial diameter. Mildly increased left atrial volume. Mildly increased left atrial area. Mitral Valve Structurally normal mitral valve. No mitral stenosis, or prolapse.trace to mild mitral regurgitation. Aortic Valve Trileaflet aortic valve. No aortic valve stenosis or regurgitation. Tricuspid Valve Structurally normal tricuspid valve. Mild tricuspid regurgitation. Pulmonic Valve Pulmonic valve not well visualized. Pericardium No pericardial effusion.echo free space anterior to the right ventricle likely represents a fat pad. Aorta Moderate aortic dilatation at the level of the sinuses of valsalva 45 mm. Ascending aorta aneurysm. CONCLUSIONS 1. Left ventricle systolic function borderline normal with moderate hypertrophy 2. Limited Doppler study with mild tricuspid regurgitation and mild pulm hypertension Technically difficult study. Definity ECHO contrast used for improved visualization of the endocardial borders (inadequate visualization of two or more contiguous segments). Previewed by: Dr. Gibran Alcazar MD (Electronically Signed) Final Date: 27 Aug 2023 09:12
[2023-08-27] MEDS: METOPROLOL SUCCINATE (ER) 100 MG TAB.ER.24H PO SCH (09:43)
[2023-08-27] MEDS: HYDROcodone/APAP 7.5-325MG 1 EACH TAB PO PRN (09:43)
[2023-08-27] MEDS: SERTRALINE 100 MG TAB PO SCH (09:43)
[2023-08-27 09:54] LABS: African American GFR (CKD) >90 (>60 ml/min/1.73 sqM); Anion Gap 6 mmol/L; Blood Urea Nitrogen 17 mg/dL (9-20); Calcium 8.8 mg/dL (8.4-10.2); Carbon Dioxide 32 mmol/L (22-30); Chloride 105 mmol/L (98-107); Glucose 118 mg/dL (74-99); Non-African American GFR(CKD) >90 (>60 ml/min/1.73 sqM); Potassium 3.9 mmol/L (3.5-5.1); Sodium 143 mmol/L (137-145)
--- NOTE | 2023-08-27 09:59 | P.PN ---
Subjective Progress Note Date: 08/27/23 Consult reason: chest pain History of present illness: History of present illness: This is a 47-year-old male patient of Dr. Sherwood with past medical history of mild coronary artery disease, diabetes, hypertension, dyslipidemia, nonischemic cardiomyopathy, overweight, COPD, tobacco use and dependence. We have been asked to evaluate the patient for chest pain. Patient states that he had new onset of chest pain last evening along with difficulty in breathing. He is not normally active. The pain has been on and off throughout the night. Not sure what seems to make it better or worse. He also has some dizziness and lightheadedness. He denies palpitations. He has more shortness of breath with any movement. No nausea or vomiting. No blood in his stools. His states that a couple nights ago he had significant left lower extremity edema and took Lasix which she does as needed. This has improved. Moving his upper body seems to make the chest pain worse. Taking a deep breath makes the pain better. Patient is seen today in the emergency center waiting for bed on the observation unit. Patient is a smoker 1 pack/day. EKG sinus rhythm Chest x-ray: No acute process Troponin negative x 1. WBC 10.9, hemoglobin 15.5. D-dimer 0.33. Sodium 141, potassium 3.8, BUN 18 creatinine 0.79. Magnesium 1.7. Home cardiac medications: Aspirin 81 mg daily, atorvastatin 80 mg at bedtime, losartan 25 mg daily, Toprol-XL 100 mg daily. Cardiac catheterization performed 01/21/2023 revealed mild to moderate coronary artery disease. Echocardiogram performed 01/20/2023 revealed EF of 45%, moderate pulmonary hypertension, mildly dilated RV. 08/26 Patient is seen today on the observation unit. He states his lower extremity edema is improved. He has been on IV Lasix 40 mg every 12 hours. Blood pressure 158/98, heart rate 53, pulse ox 93% on room air. Repeat blood work reveals sodium 143, potassium 3.9, BUN 17 creatinine 0.69. Echocardiogram reveals borderline normal left ventricular systolic function with moderate hypertrophy. Limited Doppler study with mild tricuspid regurgitation and mild pulmonary hypertension. Technically difficult study. Definity contrast used to improve visualization of the myocardial borders but inadequate visualization of 2 or more contiguous segments. Physical examination: Gen: This is a 47-year-old morbidly obese male in no acute distress. VS: reviewed HEENT: Head is atraumatic, normocephalic. Pupils equal, round. Sclerae is anicteric. NECK: Supple. No JVD. LUNGS: Decreased air exchange. No intercostal retractions. HEART: Regular rate and rhythm. no murmur. ABDOMEN: Soft No tenderness. EXTREMITIES: 1+ bilateral pedal edema. No calf tenderness. NEUROLOGICAL: Patient is awake, alert and oriented x3. Assessment: Chest pain, rule out non-ST elevated myocardial infarction History of mild coronary artery disease Diabetes mellitus type 2 Hypertension Dyslipidemia Nonischemic cardiomyopathy Morbid obesity with BMI of 53 Tobacco use and dependence Plan: Continue patient's home cardiac medications Discontinue IV Lasix and transition to oral Lasix 40 mg twice daily Smoking cessation discussed with the patient. Patient will be to [place] [facility]. Patient is cleared from cardiology for discharge and may follow-up in the office with Dr. Sherwood in 1 to 2 weeks. Nurse practitioner note has been reviewed, I agree with documented findings and plan of care. Patient was seen and examined. Objective - Vital Signs Vital signs: Vital Signs Temp 97.8 F 08/27/23 02:00 Pulse 61 08/27/23 02:00 Resp 18 08/27/23 02:00 BP 130/68 08/27/23 02:00 Pulse Ox 93 L 08/27/23 02:00 FiO2 Intake & Output 08/26/23 08/27/23 08/27/23 18:59 06:59 18:59 Output Total 1625 Balance -1625 Weight 150.139 kg Output: Urine 1625 - Labs CBC & Chem 7: 08/26/23 11:31 08/27/23 08:46 Labs: Abnormal Lab Results - Last 24 Hours (Table) 08/26/23 08/26/23 Range/Units 11:31 11:31 WBC 10.9 H (3.8-10.6) k/uL Chloride 108 H (98-107) mmol/L Glucose 111 H (74-99) mg/dL
[2023-08-27 10:02] LABS: NT-Pro-B-Type Natriuretic Pept 241 pg/mL
[2023-08-27 14:54] VITALS: BP 160/95; RESP 18; TEMP 97.6
[2023-08-27 17:28] VITALS: PULSE 57
[2023-08-27 22:01] LABS: Chol/HDL Ratio 4.12 Ratio; LDL Cholesterol,Calculated 76.9 mg/dL (0.0-131.0)
== END 2023-08-27 18:20 | disposition home or self-care (01) ==
LOC: EC 10:59 → 6NMEDSUR 12:33
PROVIDERS: ADMIT Family Medicine; ATTEND Family Medicine
DX: R07.89 Other chest pain (principal); I11.9 Hypertensive heart disease without heart failure; I42.8 Other cardiomyopathies; J44.9 Chronic obstructive pulmonary disease, unspecified; I27.20 Pulmonary hypertension, unspecified; I07.1 Rheumatic tricuspid insufficiency; I25.10 Atherosclerotic heart disease of native coronary artery without angina pectoris; I10 Essential (primary) hypertension; E11.9 Type 2 diabetes mellitus without complications; E78.5 Hyperlipidemia, unspecified; E66.01 Morbid (severe) obesity due to excess calories; Z68.43 Body mass index [BMI] 50.0-59.9, adult; F17.210 Nicotine dependence, cigarettes, uncomplicated; Z79.84 Long term (current) use of oral hypoglycemic drugs; Z79.85 Long-term (current) use of injectable non-insulin antidiabetic drugs; Z79.82 Long term (current) use of aspirin; Z79.51 Long term (current) use of inhaled steroids; Z79.899 Other long term (current) drug therapy
CPT/HCPCS: 96376; 96374; 99285; 36415; 94640 ×4; 94760; 93005; 85379; 83880; 80061; 80053; 80048; 83735; 84484; 85025; 85610; 85730; 71046; G0378 ×2; C8929; J1940; Q9957; 93306

== ENCOUNTER → 2023-10-15 | Outpatient (CLI) | payer OTHER ==
--- NOTE | 2023-10-15 16:43 | US ---
EXAMINATION TYPE: US kidneys/renal and bladder DATE OF EXAM: 10/15/2023 COMPARISON: CT abdomen and pelvis 08/14/2012. CLINICAL INDICATION: Male, 48 years old with history of N20.0 Renal stones; Pt states back pain EXAM MEASUREMENTS: Right Kidney: 14.3 x 6.2 x 7.5 cm Left Kidney: 13.0 x 6.3 x 4.9 cm Right Kidney: Large in size, No evidence of hydro, multiple cystic lesions scattered throughout, larg est at lower pole= 3.5 x 2.9 x 2.7 cm, possible 6mm calculi scattered at mid pole Left Kidney: Mild renal pelvis dilation, multiple cystic lesions scattered, largest upper pole= 2.0 x 2.1 x 1.9 cm Bladder: wnl Bilateral Jets seen: Yes There is no evidence for hydronephrosis at this point in time. Mild left renal pelvis dilatation. Papi ateral simple appearing cysts identified. No left renal calculi. Nonobstructive right renal calculi m easuring up to 6 cm. Corticomedullary differentiation is maintained. No masses are identified. The u rinary bladder is anechoic. Bilateral ureteral jets are seen. IMPRESSION: 1. No hydronephrosis. 2. Nonobstructive right renal calculi. 3. Bilateral simple appearing renal cysts.
== END | disposition home or self-care (01) ==
LOC: RADUSWWP 16:16
PROVIDERS: ATTEND Family Medicine
DX: N20.0 Calculus of kidney (principal); N28.1 Cyst of kidney, acquired
CPT/HCPCS: 76770